=== PATIENT | female | born 1945 | race American Indian/Alaskan Native ===

== ENCOUNTER 2016-03-12 09:13 | Day surgery (SDC) | payer OTHER, MEDICARE ==
[2016-03-11 10:22] LABS: Hematocrit 23.2 % (30.3-42.9); Hemoglobin 7.4 gm/dl (10.1-14.3)
[~2016-03-12 09:13] MED LIST: FLUSH HEPARIN IV ONE
[2016-03-12] MEDS ORDERED: NACL 0.9% 250ML 250 ML IV ONE (09:16)
[2016-03-12] MEDS ORDERED: BENADRYL PO ONE (09:16)
[2016-03-12] MEDS ORDERED: TYLENOL PO ONE (09:16)
[2016-03-12] MEDS ORDERED: FLUSH HEPARIN IV SCH (14:31)
[2016-03-12 14:48] VITALS: BP 136/84
== END 2016-03-12 15:21 | disposition home or self-care (01) ==
LOC: OPU 09:13 → EDSTATUS 09:30 → OPU 15:21
PROVIDERS: ATTEND Internal Medicine Hematology & Oncology
DX: D64.9 Anemia, unspecified (principal)
CPT/HCPCS: 36415; 36430; 85018; 86850; 86900; 86901; 86920; J1642; J7050; P9016

== ENCOUNTER 2016-03-17 15:28 | Inpatient (IN) | payer OTHER, MEDICARE ==
--- NOTE | 2016-03-17 16:42 | Emergency Department Report ---
Chief Complaint: Nausea/Vomiting/Diarrhea Stated Complaint: FATIGUE - HPI History of Present Illness: Terminally-ill patient with b/l lung cancer undergoing chemo c/o weakness, dehydration, stomach pain, and right chest pain at site of port radiating up right neck. Reports 2 units blood transfusion 03/12/15. Last chemo 2 months ago. Reports emergency hysterectomy 02/02/16. - Exam Vital Signs: Vital Signs 03/17/16 16:22 Temperature 97.3 F L Pulse Rate 88 Respiratory 18 Rate Blood Pressure 118/87 O2 Sat by Pulse 100 Oximetry Physical Exam: General: chronically debilitated-appearing. MSE screening note: Focused history and physical exam performed. Due to findings the following was ordered: ED Medical Decision Making - Medical Decision Making Patient to see MD in main ED. ED Disposition for MSE Condition: Stable
[2016-03-17 17:22] LABS: Eosinophils % (Auto) 0.3 % (0.0-4.3)
[2016-03-17 17:37] LABS: INR 1.26 (0.87-1.13)
[2016-03-17 17:38] LABS: Partial Thromboplastin Time 34.3 Sec. (24.2-36.6)
[2016-03-17 17:41] LABS: Albumin 2.2 g/dL (3.9-5); Albumin/Globulin Ratio 0.5 %; BUN/Creatinine Ratio 17.27; Bilirubin,Total 0.5 mg/dL (0.1-1.2); Calcium 8.7 mg/dL (8.4-10.2); Chloride 102.2 mmol/L (98-107); Potassium 3.1 mmol/L (3.6-5.0); Total Protein 6.5 g/dL (6.3-8.2)
[2016-03-17 19:14] LABS: Hematocrit 36.1 % (30.3-42.9); Hemoglobin 11.3 gm/dl (10.1-14.3); Mean Corpuscular HGB Conc 31 % (30-34); Mean Corpuscular Hemoglobin 26 pg (28-32); Mean Corpuscular Volume 83 fl (79-97); Red Blood Count 4.37 M/mm3 (3.65-5.03); White Blood Count 14.5 K/mm3 (4.5-11.0)
[2016-03-17 19:15] LABS: Basophils % (Auto) 0.2 % (0.0-1.8); Platelet Count 199 K/mm3 (140-440); Red Cell Distribution Width 16.7 % (13.2-15.2)
--- NOTE | 2016-03-18 07:51 | XRay Report ---
AP and lateral chest: Comparison is made to prior study of January 21, 2016. There is an enlarging right mass in what appears to be the superior segment of the right lower lobe. There is a cavity with air fluid. The mass is larger than on prior study and the cavity is new. A small focal area of parenchymal density is noted just above the left hilum which probably is unchanged from prior study. The lungs otherwise appear generally clear. The heart is normal in size and is no vascular congestion. There is [id number] entering the left jugular vein with the tip in the superior SVC. Impression: Enlarging right cavitary mass.
[2016-03-18] MEDS ORDERED: NACL 0.9% 1000 ML 1,000 ML IV ONE (08:54)
[2016-03-18] MEDS ORDERED: ZOFRAN IV ONE (09:04)
[2016-03-18] MEDS ORDERED: DILAUDID IV ONE (09:04)
[2016-03-18] MEDS ORDERED: NORMODYNE IV ONE (09:04)
[2016-03-18] MEDS ORDERED: APRESOLINE IV ONE (09:04)
[2016-03-18 09:15] LABS: ISTAT Base Excess -7; ISTAT DEVICE 0; ISTAT HCO3 17.8; ISTAT PCO2 27.9 (35-45); ISTAT PH 7.413 (7.35-7.45); ISTAT PO2 94 (80-105); ISTAT SO2 98; ISTAT TCO2 19
[2016-03-18] MEDS ORDERED: VALIUM IV ONE (09:37)
--- NOTE | 2016-03-18 09:37 | Emergency Department Report ---
HPI - General Chief Complaint: Nausea/Vomiting/Diarrhea Time Seen by Provider: 03/18/16 08:40 - HPI HPI: The patient is a 70-year-old female with a history of lung cancer, C. difficile 1 month ago, recurrent diarrhea, recurrent hematochezia, currently appetite loss , and appendectomy and pelvic abscess drainage 1 month ago, who presents for evaluation of abdominal pain. The patient reports 1 week of constant lower abdominal pain, mild in severity, cramping in quality, and associated with dysuria, recurrence of diarrhea, and worsening of decreased appetite. She additionally complains of generalized weakness and fatigue increased from her baseline, for the past couple of days. The patient denies fever, chills, night sweats, chest pain, dyspnea, hematuria, flank pain, genital discharge, inability to pass flatus, paresthesias, lateralizing motor deficit, or other focal neurological deficit. ED Past Medical Hx - Past Medical History Hx Hypertension: Yes Hx Heart Attack/AMI: No Hx Congestive Heart Failure: No Hx Diabetes: Yes Hx Deep Vein Thrombosis: No Hx Liver Disease: No Hx Renal Disease: No Hx Arthritis: Yes (KNEES) Hx Seizures: No Hx Kidney Stones: No Hx Asthma: No Hx Dementia: No Hx HIV: No Additional medical history: hyperlipidemia - Surgical History Hx Coronary Stent: No Hx Open Heart Surgery: No Hx Pacemaker: No Hx Internal Defibrillator: No Hx Cholecystectomy: Yes Hx Appendectomy: Yes Hx Breast Surgery: No Additional Surgical History: lung biopsy (2010). breast biopsy (Apr 2014), abdominal hysterectomy - Social History Smoking Status: Never Smoker - Medications Home Medications: Home Medications Medication Instructions Recorded Confirmed Last Taken Type Multivitamin [Multi-Vitamin Daily] 1 tab PO DAILY 05/16/14 02/24/16 1 Week Ago History Acetaminophen [Acetaminophen TAB] 650 mg PO Q6H PRN #1 tablet 02/13/16 02/24/16 Unknown Rx Antacid [Alum-Mag Hydrox-Simeth 30 ml PO Q4H PRN #1 oral.liqd 02/13/16 02/24/16 Unknown Rx [id number]] Carvedilol [Coreg] 12.5 mg PO DAILY #30 tablet 02/13/16 02/24/16 Unknown Rx Cholestyramine (with Sugar) 4 gm PO QDAY #30 packet 02/13/16 02/24/16 Unknown Rx [Questran] Lactobacillus Acidophil [Floranex] 1 each PO BID #60 packet 02/13/16 02/24/16 Unknown Rx Megestrol [Megace] 400 mg PO QDAY 30 Days 02/13/16 02/24/16 Unknown Rx Mirtazapine [Remeron] 15 mg PO QHS #30 tablet 02/13/16 02/24/16 Unknown Rx Simvastatin [Zocor TAB] 5 mg PO DAILY #30 tablet 02/13/16 02/24/16 Unknown Rx Triamter/Hctz 37.5-25 mg 1 tab PO DAILY #30 tablet 02/13/16 02/24/16 Unknown Rx [Maxzide-25] metroNIDAZOLE [Flagyl] 500 mg PO Q8HR #30 tablet 02/27/16 Unknown Rx Oxycodone HCl/Acetaminophen 1 each PO Q6HR PRN #15 tablet 03/18/16 Unknown Rx [Percocet 7.5/325 mg] ED Review of Systems ROS: Stated complaint: FATIGUE Other details as noted in HPI Constitutional: denies: fever ENT: denies: throat or neck pain Respiratory: denies: cough, shortness of breath Cardiovascular: denies: chest pain Endocrine: denies unexplained weight loss or gain Gastrointestinal: reports abdominal pain, nausea Genitourinary: denies: dysuria Musculoskeletal: denies: leg swelling Skin: denies: rash Neurological: denies: headache Hematological/Lymphatic: denies: easy bleeding or easy bruising Psych: denies sadness or hopelessness Physical Exam - Physical Exam Vital Signs: Vital Signs 03/17/16 03/18/16 03/18/16 16:22 03:43 07:49 Temperature 97.3 F L 97.3 F L Pulse Rate 88 95 H 96 H Respiratory 18 18 20 Rate Blood Pressure 118/87 152/102 Blood Pressure 148/114 [Right] O2 Sat by Pulse 100 100 100 Oximetry Physical Exam: General: well-nourished, well-developed, no acute distress Head: Normocephalic, atraumatic Eyes: normal sclera ENT: Mucous membranes are pink and moist Neck: trachea midline, neck supple, No neck stiffness, no cervical adenopathy Respiratory: Breath sounds equal bilaterally, no wheezing, rales, or rhonchi Cardio: S1 and S2 present, no murmurs, rubs, gallops, capillary refill is brisk Abdomen: Normoactive bowel sounds, soft abdomen, periumbilical tenderness to palpation present, no rigidity, no guarding or rebound tenderness Musc: No pitting edema Skin: No rash Neuro: no facial drooping, normal speech Psych: Normal affect ED Course Vital Signs 03/17/16 03/18/16 03/18/16 16:22 03:43 07:49 Temperature 97.3 F L 97.3 F L Pulse Rate 88 95 H 96 H Respiratory 18 18 20 Rate Blood Pressure 118/87 152/102 Blood Pressure 148/114 [Right] O2 Sat by Pulse 100 100 100 Oximetry ED Medical Decision Making - Lab Data Result diagrams: 03/17/16 17:05 03/17/16 17:05 - Medical Decision Making The patient was seen and examined by myself. The patient is placed on a window shade cutter and mounter and continuous pulse ox. On initial evaluation, the patient was found to be in no distress. Evaluation orders are placed. IV access is established and the patient is given 1 L normal saline fluid bolus, Zofran for nausea, and IV dilaudid for pain. Lab results revealed mild leukocytosis of 14, and elevated glucose of 390, with low bicarbonate and elevated anion gap, although normal pH of 7.4 on ABG not consistent with diabetic ketoacidosis. Lab results otherwise were unremarkable including hemoglobin, hematocrit, renal function, LFTs, lipase, and urinalysis. The patient was given IV insulin for treatment of her blood sugar. X-ray of the chest reveals an enlarging right lower lobe mass with a new cavitary lesion compared to previous Xr. The on-call hospitalist service was contacted. They agreed to admit the patient for further treatment and close monitoring. The ED admit order was placed. The patient was admitted in guarded condition. Critical care attestation.: If time is entered above; I have spent that time in minutes in the direct care of this critically ill patient, excluding procedure time. ED Disposition Clinical Impression: Hypertensive urgency, Acute hyperglycemia, Acute generalized abdominal pain, Generalized weakness, Dehydration, Cavitary lung disease Lung cancer Qualifiers: Laterality: right Lung location: lower lobe of lung Qualified Code(s): C34.31 - Malignant neoplasm of lower lobe, right bronchus or lung Disposition: OP ADMITTED IP TO THIS HOSP Is pt being admited?: Yes Does the pt Need Aspirin: Yes Condition: Fair Prescriptions: Oxycodone HCl/Acetaminophen [Percocet 7.5/325 mg] 1 each PO Q6HR PRN #15 tablet PRN Reason: Pain Referrals: ALLISON FLORES MD [Primary Care Provider] - 3-5 Days Time of Disposition: 09:55
[2016-03-18 11:08] LABS: Bilirubin,Urine Negative (Negative); Ketones,Urine Negative (Negative)
[2016-03-18 11:09] LABS: Bacteria,Urine 4+ /HPF (Negative); Blood,Urine Moderate (Negative); Leukocyte Esterase,Urine Negative (Negative); Nitrite,Urine Positive (Negative); Urobilinogen,Urine < 2.0 mg/dL (<2.0)
[2016-03-18] MEDS ORDERED: BABY ASPIRIN PO ONE (12:44)
--- NOTE | 2016-03-18 12:49 | Admit Criteria Form ---
Admission Criteria Documentation: GASTROENTEROLOGY GRG Clinical Indications for Admission to Inpatient Care (Place 'X' for any and all applicable criteria): Hospital admission is needed for appropriate care of the patient because of ANY ONE of the following: [ ]I. Hemoperitoneum(7) [ ]II. Ascites requiring acute treatment indicated by ANY ONE of the following( 8)(9): [ ]a) Hemodynamic instability remaining after emergency or observation level care (as appropriate) [ ]b) Peritoneal signs present (eg, abdominal rigidity, rebound tenderness, absent bowel sounds) [ ]c) Tachypnea, Hypoxemia, or other respiratory symptoms remain after emergency or observation level care (as appropriate) [ ]d) Suspected infected ascites as indicated by ANY ONE of the following: [ ]i) Temperature greater than 100 degrees F (37.8 degrees C) [ ]ii) Abdominal pain or tenderness not relieved by paracentesis [ ]iii) Systemic signs of infection (eg, elevated WBC count, fever) [ ]iv) Ascitic fluid analysis consistent with infection ( eg, elevated WBC count): [ ]v) Vital sign abnormality [ ]III. Suspected acute intra-abdominal process indicated by ANY ONE of the following(1)(2)(3)(4)(5): [ ]a) Hemodynamic instability [ ]b) Peritoneal signs present (eg, abdominal rigidity, rebound tenderness, absent bowel sounds) [ ]c) Bowel obstruction suspected (eg, severe vomiting, abdominal distension) [ ]d) Suspected mesenteric ischemia or ischemic colitis(6) [ ]e) Other signs or symptoms of acute abdominal disease (eg, severe pain, free air): [ ]IV. Severe liver disease indicated by ANY ONE of the following(8)(9)(10)(11)( 12)(13)(14): [ ]a) Acute hepatitis (eg, transaminase level greater than 1000 IU/L) [ ]b) Acute elevation of prothrombin time to more than 50% above normal or INR greater than 1.5 [ ]c) Bilirubin greater than 20 mg/dL (342 micromoles/L) (15) [ ]d) New-onset or worsening hepatic encephalopathy [ ]e) Acute liver necrosis [ ]f) Vomiting or dehydration that is severe of persistent [ ]g) Hemodynamic instability due to liver disease [ ]h) Acute renal failure [ ]i) Hepatic abscess [ ]j) Dehydration that is severe or persistent [ ]k) Hepatic hydrothorax(21) [ ]l) Other indications of severe liver disease (eg, persistent fever , ingestion of hepatotoxin) [X ]V. Severe diarrhea indicated by ANY ONE of the following(17)(18)(19)(20)(21) (22)(23): [ ]a) High fever or other high-risk infection situation [ ]b) Intractable bloody diarrhea (eg, more than 6 bloody stools per day) [X ]c) Suspected Clostridium difficile-associated diarrhea(24) [ ]d) Change in mental status that persists after emergency or observation level care (as appropriate) [ ]e) Severe dehydration (eg, greater than 9% loss of body weight in children) [ ]f) Inability to maintain hydration [ ]g) Peritoneal signs present (eg, abdominal rigidity, rebound tenderness, absent bowel sounds) [ ]h) Abdominal ischemia suspected(6) [ ]i) Hemodynamic instability that persists after emergency or observation level care (as appropriate) [ ]j) Severe electrolyte abnormalities requiring inpatient care [ ]k) Acute renal failure [ ]. Suspected toxic megacolon(5)(6) [ ]VII.Severe dysphagia indicated by ANY ONE of the following(25)(26): [ ]a) Suspected esophageal perforation or fistula(27) [ ]b) Suspected cause that requires inpatient care (eg, caustic ingestion, severe esophagitis) (28) [ ]c) Severe dehydration (eg, greater than 9% loss of body weight in children) [ ]d) Inability to manage secretions or maintain hydration [ ]e) Hemodynamic instability that persists after emergency or observation level care (as appropriate) [ ]f) Severe electrolyte abnormalities requiring inpatient care [ ]g) Acute renal failure [ ]VIII.Vomiting and ANY ONE of the following (29)(30)(31)(32): [ ]a) High fever or other high-risk infection situation [ ]b) Change in mental status that persists after emergency or observation level care (as appropriate) [ ]c) Severe dehydration (e.g., greater than 9% loss of body weight in children) [ ]d) Peritoneal signs present (e.g., abdominal rigidity, rebound tenderness, absent bowel sounds) [ ]e) Hemodynamic instability that persists after emergency or observation level care (as appropriate) [ ]f) Severe electrolyte abnormalities requiring inpatient care [ ]g) Acute renal failure [ ]h) Bowel obstruction suspected (e.g., severe vomiting, abdominal distension) [ ]i) Vomiting that is severe or persistent after medical treatment [ ]IX. Significant dehydration indicated by ANY ONE of the following(23)(24)(25) [ ]a) Clinical findings of severe dehydration indicated by ANY ONE of the following: [ ]i) Acute loss of weight from baseline (5% of body weight in adults, 9% in pediatric patients) [ ]ii) Hemodynamic instability [ ]iii) Acute renal failure [ ]iv) Serum sodium greater than 150 mEq/L (mmol/L) [ ]b) Dehydration that is persistent indicated by ALL of the following: [ ]i) Oral rehydration therapy not tolerated or insufficient to adequately correct dehydration [ ]ii) Appropriate intravenous treatment (eg, fluids) does not readily correct dehydration hours of (ie, after 12 to 24 of treatment) [ ]X. Gastroparesis and ANY ONE of the following(37)(38)(39): [ ]a) Dehydration that is severe or persistent [ ]b) Severe electrolyte abnormalities requiring inpatient care [ ]c) Acute renal failure [ ]d) Vomiting that is severe or persistent [ ]XI. Complications of transplanted liver indicated by ANY ONE of the following (40)(41): [ ]a) Acute graft rejection requiring inpatient management (eg, intravenous immunosuppression)(42) [ ]b) Failure of transplanted liver as indicated by ANY ONE of the following: [ ]i) Acute hepatitis (eg, transaminase level greater than 1000 International Units per liter (IU/L)) [ ]ii) Acute elevation of prothrombin time to more than 50% above baseline or INR greater than 1.5 [ ]iii) Bilirubin greater than 20 mg/dL (342 micromoles/L) [ ]iv) New-onset or worsening hepatic encephalopathy [ ]v) Acute elevation of serum ammonia level (eg, greater than 210 mcg/dL (150 micromoles/L)) [ ]vi) Acute liver necrosis [ ]c) Infection requiring inpatient management (eg, Hemodynamic instability, need for intravenous antimicrobial treatment)(43)(44)(45)(46)(47)(48)(49)(50) [ ]d) Other complication of transplanted liver (eg, thrombosis, autoimmune hepatitis, variceal bleeding) requiring inpatient management(51)(52) [ ]XII Complications of transplanted pancreas indicated by ANY ONE of the following(53): [ ]a) Acute graft rejection requiring inpatient management (eg, intravenous immunosuppression)(42)(54) [ ]b) Failure of transplanted pancreas as indicated by ANY ONE of the following: [ ]i) Serum amylase greater than 3 times the upper limit of normal or baseline [ ]ii) Serum lipase greater than 3 times the upper limit of normal or baseline [ ]iii) Imaging findings consistent with pancreatic inflammation or necrosis [ ]c) Infection requiring inpatient management (eg, Hemodynamic instability, need for intravenous antimicrobial treatment)(43)(44)(45)(46)(47)(48)(49)(50) [ ]d) Other complication of transplanted liver (eg, thrombosis, autoimmune hepatitis, variceal bleeding) requiring inpatient management(51)(52) [ ]X. Gastroenterology condition and ALL of the following: [ ]a) Symptom or finding for which emergency and observation care have failed or are not considered appropriate (Also use General Criteria: Observation Care as appropriate) [ ]b) Presence of ANY ONE of the following: [ ]i) A General Admission Criteria [ ]ii) A Pediatric General Admission Criteria. The original [facility] [employer] content created by [facility] has been revised. The portions of the content which have been revised are identified through the use of italic text or in bold,and [facility] has neither reviewed nor approved the modified material. All other unmodified content is copyright [facility]. Please see references footnoted in the original [facility] edition 2016 Admission Criteria Met: Yes
--- NOTE | 2016-03-18 14:14 | Event Note ---
Date: 03/18/16 See H/p in reports C diff colitis Hypokalemia Lung ca with Rt cavitary lesion sec to cancer DM UTI HTN HLD
[2016-03-18] MEDS ORDERED: MILK OF MAGNESIA PO PRN (14:19)
[2016-03-18] MEDS ORDERED: DULCOLAX PR PRN (14:19)
[2016-03-18] MEDS ORDERED: TYLENOL PO PRN ×2 (14:19→14:22)
[2016-03-18] MEDS ORDERED: PERCOCET 5/325 PO PRN (14:19)
[2016-03-18] MEDS ORDERED: ZOFRAN IV PRN (14:19)
[2016-03-18] MEDS ORDERED: DILAUDID IV PRN (14:19)
[2016-03-18] MEDS ORDERED: ALUM-MAG HYDROX-SIMETH 200-200-20MG/5ML PO PRN (14:22)
[2016-03-18] MEDS ORDERED: BABY ASPIRIN ONE (15:55)
[2016-03-18] MEDS: FLAGYL PO SCH ×2 (16:04→22:36)
[2016-03-18] MEDS: D5NS 1,000 ML IV SCH (16:11)
[2016-03-18 21:04] LABS: B-Hydroxybutyrate 3.8 mg/dL (0.2-2.8)
[2016-03-18] MEDS: REMERON PO SCH (22:36)
[2016-03-18] MEDS: ZOCOR PO SCH (22:37)
--- NOTE | 2016-03-19 01:52 | History and Physical Report ---
CHIEF COMPLAINT: Nausea, vomiting, and diarrhea. HISTORY OF PRESENT ILLNESS: A 70-year-old female with history of lung cancer on chemotherapy till one month ago and C. difficile one month ago, comes in for recurrent diarrhea, loss of appetite and abdominal pain. The patient had a pelvic abscess drainage one month ago and appendectomy recently. The patient reports one week of constant abdominal pain, mild in severity, cramping in quality and associated with diarrhea and worsening of decreased appetite. Feels weak. No dysuria, no flank pain. PAST MEDICAL HISTORY: Significant for hypertension, C. diff colitis, insulin-dependent diabetes, arthritis of the knees, and hyperlipidemia. PAST SURGICAL HISTORY: Significant for cholecystectomy, appendectomy, lung biopsy 2010, breast biopsy on 04/26/2014, and abdominal hysterectomy. CURRENT MEDICATIONS: On the chart. REVIEW OF SYSTEMS: Significant for diarrhea and crampy abdominal pain and generalized weakness. CONSTITUTIONAL: No weight loss. No weight gain. No fever, no chills. HEENT: No sore throat. No postnasal drip. CARDIOVASCULAR AND RESPIRATORY: No shortness of breath, no chest pain, no palpitations. GASTROINTESTINAL: No abdominal pain and cramping pain and diarrhea present. Foul smelling. GENITOURINARY: No dysuria, no flank pain. MUSCULOSKELETAL: No joint pains. INTEGUMENTARY: No pruritus, no redness, no sores. NEUROLOGICAL: No syncope, no seizures. PSYCHIATRIC: No anxiety, no memory loss. ENDOCRINE: No cold intolerance or hot intolerance or polyphagia. HEMATOLOGIC AND LYMPHATIC: No easy bruising or easy bleeding. ALLERGIC AND IMMUNOLOGIC: No urticaria, no allergic rhinitis. PHYSICAL EXAMINATION: GENERAL: Elderly female, cooperative during examination. VITAL SIGNS: Blood pressure is 120/68, temperature is 100, pulse is 75, respirations 14, sats are 100%. HEENT: Unremarkable. NECK: Supple, no lymphadenopathy, no thyromegaly. LUNGS: Clear to auscultation and percussion. Good air entry. CARDIOVASCULAR: S1, S2 heard. No gallop, no murmur, no rub. Apical impulse in left fifth intercostal space and midclavicular line. ABDOMEN: Tender in the periumbilical region. Bowel sounds are normal. Hernial orifices are normal. EXTREMITIES: Good pedal pulses. CENTRAL NERVOUS SYSTEM: Alert and oriented x 4, nonfocal exam. SKIN: Normal. LABORATORY DATA: Significant for white count of 14,500, H and H is 11.3 and 36.1, potassium is 3.1, BUN and creatinine is 19 and 1.1, glucose is 394. LFTs are normal. Albumin is 2.2. Urine white blood cells are 7. Ketones are 3.8. Urine bacteria is 4+. C. diff is pending. ABG significant for pCO2 of 27.9, pO2 of 94. pH is 7.4. ___ sat of 98%. ASSESSMENT AND PLAN: 1. Clostridium difficile colitis. The patient was started on IV Flagyl 500 q. 8 hours. IV fluids. 2. Hypokalemia, supplemented. 3. Lung cancer. The patient is on chemotherapy till recently. Dr. Anneliese [place]/oncologist consulted. 4. Insulin-dependent diabetes, coverage for the time being. Check hemoglobin A1c. 5. Urinary tract infection, on Rocephin 1 gram IV piggyback q. 24 hours. 6. Slightly hypertension. Continue Coreg 12.5 mg daily and triamterene/hydrochlorothiazide 37.5/25 mg daily. 7. Hyperlipidemia. Continue simvastatin 5 mg daily. 8. Deep venous thrombosis prophylaxis, Lovenox 40 mg subcutaneous daily. JOB# [id number] VSLinda/NTS
[2016-03-19] MEDS: KCL 10MEQ/100ML 100 ML IV SCH ×4 (02:49→06:25)
[2016-03-19] MEDS: FLAGYL PO SCH ×3 (06:25→23:09)
[2016-03-19 08:03] LABS: Hematocrit 32.2 % (30.3-42.9); Hemoglobin 10.4 gm/dl (10.1-14.3); Mean Corpuscular HGB Conc 32 % (30-34); Mean Corpuscular Hemoglobin 27 pg (28-32); Mean Corpuscular Volume 82 fl (79-97); Platelet Count 182 K/mm3 (140-440); Red Blood Count 3.91 M/mm3 (3.65-5.03); Red Cell Distribution Width 16.6 % (13.2-15.2)
[2016-03-19 08:15] LABS: White Blood Count 20.9 K/mm3 (4.5-11.0)
[2016-03-19 08:28] LABS: Albumin/Globulin Ratio 0.5 %; Alkaline Phosphatase 75 units/L (35-129); Anion Gap 14 mmol/L; BUN/Creatinine Ratio 21.11; Bilirubin,Total 0.5 mg/dL (0.1-1.2); Blood Urea Nitrogen 19 mg/dL (7-17); Calcium 8.4 mg/dL (8.4-10.2); Carbon Dioxide 20 mmol/L (22-30); Chloride 114.8 mmol/L (98-107); Glucose 121 mg/dL (65-100); Potassium 4.1 mmol/L (3.6-5.0); Sodium 145 mmol/L (137-145); Total Protein 5.9 g/dL (6.3-8.2)
[2016-03-19 08:31] LABS: Alanine Aminotransferase < 5 units/L (7-56)
--- NOTE | 2016-03-19 09:05 | Hem/Onc Progress Note ---
Assessment and Plan Patient has history of lung cancer. Will order's CT of the [place] and lung to assess the disease status. She has elevated white count which could be from malignancy or C. difficile. We will follow-up on the intra-abdominal status of the patient to with the scan. Next Patient seems to be confused. We will order MRI of the head to rule out any brain metastases. Next Patient also has evidence of urinary tract infection being treated. Subjective Date of service: 03/19/16 Interval history: Patient known to me. History of metastatic lung cancer. Patient had recent bout of intra-abdominal abscess requiring surgery. She also had evidence of C. difficile colitis. She presented to the hospital with weakness. Her white count was high. Patient has been empirically placed on Flagyl and anti- biotics. C. difficile is pending. Patient has not had chemotherapy for some time. Her scans outpatient workup pending to see the status of the disease. She feels better since she's come to the hospital. Objective - Exam Narrative Exam: Confused - Constitutional Vitals: Last Vital Signs Temp 97.7 F 03/19/16 07:54 Pulse 88 03/19/16 07:54 Resp 16 03/19/16 07:54 BP 172/73 03/19/16 07:54 Pulse Ox 97 03/19/16 07:54 Pain Intensity (0-10): denies any pain - Neck Neck: supple - Respiratory Respiratory: bilateral: diminished - Cardiovascular Rhythm: regular Extremities: No edema - Gastrointestinal General gastrointestinal: Present: soft - Labs Lab Results: Laboratory Results - last 24 hr 03/18/16 03/18/16 03/19/16 14:57 Unknown 06:02 WBC RBC Hgb Hct MCV MCH MCHC RDW Plt Count Sodium Potassium Chloride Carbon Dioxide Anion Gap BUN Creatinine Estimated GFR BUN/Creatinine Ratio Glucose POC Glucose 137 H Hemoglobin A1c 5.8 Calcium Total Bilirubin AST ALT Alkaline Phosphatase Total Protein Albumin Albumin/Globulin Ratio Urine Color Yellow Urine Turbidity Cloudy Urine pH 6.0 Ur Specific [place] 1.005 Urine Protein 30 mg/dl Urine Glucose (UA) Negative Urine Ketones Negative Urine Blood Moderate Urine Nitrite Positive Urine Bilirubin Negative Urine Urobilinogen < 2.0 Ur Leukocyte Esterase Negative Urine WBC (Auto) 7.0 H Urine RBC (Auto) 2.0 U Epithel Cells (Auto) 7.0 Urine Bacteria (Auto) 4+ 03/19/16 03/19/16 07:45 07:45 WBC 20.9 H RBC 3.91 Hgb 10.4 Hct 32.2 MCV 82 MCH 27 L MCHC 32 RDW 16.6 H Plt Count 182 Sodium 145 Potassium 4.1 D Chloride 114.8 H Carbon Dioxide 20 L Anion Gap 14 BUN 19 H Creatinine 0.9 Estimated GFR > 60 BUN/Creatinine Ratio 21.11 Glucose 121 H POC Glucose Hemoglobin A1c Calcium 8.4 Total Bilirubin 0.5 AST 8 ALT < 5 L Alkaline Phosphatase 75 Total Protein 5.9 L Albumin 2.0 L Albumin/Globulin Ratio 0.5 Urine Color Urine Turbidity Urine pH Ur Specific [place] Urine Protein Urine Glucose (UA) Urine Ketones Urine Blood Urine Nitrite Urine Bilirubin Urine Urobilinogen Ur Leukocyte Esterase Urine WBC (Auto) Urine RBC (Auto) U Epithel Cells (Auto) Urine Bacteria (Auto)
[2016-03-19 09:31] LABS: Anisocytosis RARE; Basophils % (Manual) 0 % (0.0-1.8); Blastocytes % (Manual) 0 %; Eosinophils % (Manual) 0 % (0.0-4.3)
[2016-03-19 09:32] LABS: Diff Status Complete; Polychromasia Rare
[2016-03-19] MEDS: NOVOLOG SUB-Q SCH ×5 (11:05→23:14)
[2016-03-19] MEDS: MAXZIDE-25 PO SCH (11:07)
[2016-03-19] MEDS: COREG PO SCH (11:08)
[2016-03-19] MEDS: LOVENOX SUB-Q SCH (11:20)
[2016-03-19] MEDS: MEGACE PO SCH (11:21)
--- NOTE | 2016-03-19 17:38 | Cat Scan Report ---
FINAL REPORT PROCEDURE: CT chest with contrast. TECHNIQUE: Computerized axial tomography of the chest was performed during the IV injection of iodinated nonionic contrast. HISTORY: Lung cancer. COMPARISON: CT chest 09/05/2015. TECHNICAL QUALITY: Satisfactory. FINDINGS: The thyroid gland is enlarged. The left lobe extends posterior to the left clavicle and the manubrium. The trachea is displaced to the right by the enlarged left lobe. The central bronchi appear normal. The thoracic aorta has a normal caliber without evidence of dissection. The central pulmonary arteries enhance normally. There is no definite mediastinal adenopathy. The heart size is normal. There is a very small amount of right pleural fluid. There is still a large mass located predominantly in the superior segment of the right lower lobe. This mass now has new cavitation with central fluid. This is likely secondary to tumor necrosis. A lung abscess cannot be excluded. The overall size of this mass is slightly larger measuring approximately 7.3 centimeters x 5.5 centimeters in cross-section. There are still a few peripheral small nodular opacities in both upper lobes. These opacities are not sharply defined like typical metastatic disease. My suspicion is that they may represent inflammatory nodules. Clinical correlation is suggested. There is still a small focal area of consolidation/nodularity in the superior segment of the left lower lobe. This is unchanged and could represent chronic fibrosis or a chronic inflammatory process. The thoracic skeleton appears intact. There are some subtle new focal masses in the upper portion of the liver worrisome for metastatic disease. These were not definitely present on the previous study. IMPRESSION: Large right lower lobe lung cancer with slight increase in size and new central cavitation and fluid. Lung abscess cannot be excluded. No significant change in possible small inflammatory nodules in both lungs. New tiny right pleural effusion and new metastatic disease in the liver. Substernal thyroid goiter.
--- NOTE | 2016-03-19 17:42 | Progress Note ---
Assessment and Plan Assessment and plan: --Intractable nausea vomiting and diarrhea Symptomatic management IV fluids and antiemetics stool analysis --History of C. difficile colitis Contact isolation, by mouth Flagyl, ID evaluation if needed --Leukocytosis; rule out sepsis Probably secondary to C. difficile colitis versus malignancy Closely monitor --Metastatic lung cancer; Supportive care, hematology oncologist evaluation and recommendations noted MRI of the brain and other workup in progress --type 2 diabetes mellitus, Accu-Chek sliding scale coverage and ADA diet and insulin as needed --Urinary tract infection; empiric antibiotics and follow cultures --History of hypertension close monitor blood pressures and adjust as needed --Hypokalemia replenishment protocol and monitor levels --Hypertension and dyslipidemia Resume home medications --Dyslipidemia stable on lipid-lowering medications --Patient full CODE STATUS, closely monitor the patient and adjust management as needed --DVT prophylaxis with Lovenox Plan of care discussed with the patient and the family members at the bedside History Interval history: Patient seen and evaluated in her room medical records reviewed No new events reported by the nursing staff Hematology oncologist evaluation and recommendations noted and appreciated, workup is in progress Patient feels generalized weakness Alert awake responding appropriately cachectic chronically looking In mild distress, vital signs reviewed Hospitalist Physical - Constitutional Vitals: Temp Pulse Resp BP Pulse Ox 98.3 F 82 16 145/82 95 03/19/16 14:51 03/19/16 14:51 03/19/16 14:51 03/19/16 14:51 03/19/16 14:51 General appearance: Present: mild distress, cachectic, disheveled - EENT Eyes: Present: PERRL, EOM intact - Neck Neck: Present: supple, normal ROM - Respiratory Respiratory effort: normal Respiratory: bilateral: diminished, rhonchi, negative: rales, wheezing - Cardiovascular Rhythm: regular Heart Sounds: Present: S1 & S2 - Extremities Extremities: no ischemia, pulses intact, pulses symmetrical Extremity abnormal: edema - Abdominal General gastrointestinal: soft, non-tender, non-distended, normal bowel sounds - Integumentary Integumentary: Present: clear, warm - Psychiatric Psychiatric: appropriate mood/affect, cooperative - Neurologic Neurologic: CNII-XII intact, moves all extremities Results - Labs CBC & Chem 7: 03/20/16 08:00 03/20/16 08:00 Labs: Laboratory Last Values WBC 20.9 K/mm3 (4.5-11.0) H 03/19/16 07:45 RBC 3.91 M/mm3 (3.65-5.03) 03/19/16 07:45 Hgb 10.4 gm/dl (10.1-14.3) 03/19/16 07:45 Hct 32.2 % (30.3-42.9) 03/19/16 07:45 MCV 82 fl (79-97) 03/19/16 07:45 MCH 27 pg (28-32) L 03/19/16 07:45 MCHC 32 % (30-34) 03/19/16 07:45 RDW 16.6 % (13.2-15.2) H 03/19/16 07:45 Plt Count 182 K/mm3 (140-440) 03/19/16 07:45 Lymph % (Auto) 22.1 % (13.4-35.0) 03/17/16 17:05 [place] % (Auto) 8.8 % (0.0-7.3) H 03/17/16 17:05 Eos % (Auto) 0.3 % (0.0-4.3) 03/17/16 17:05 Baso % (Auto) 0.2 % (0.0-1.8) 03/17/16 17:05 Lymph # 3.2 K/mm3 (1.2-5.4) 03/17/16 17:05 [place] # 1.3 K/mm3 (0.0-0.8) H 03/17/16 17:05 Eos # 0.0 K/mm3 (0.0-0.4) 03/17/16 17:05 Baso # 0.0 K/mm3 (0.0-0.1) 03/17/16 17:05 Add Manual Diff Complete 03/19/16 07:45 Total Counted 100 03/19/16 07:45 Seg Neutrophils % 68.6 % (40.0-70.0) 03/17/16 17:05 Seg Neuts % (Manual) 87.0 % (40.0-70.0) H 03/19/16 07:45 Band Neutrophils % 0 % 03/19/16 07:45 Lymphocytes % (Manual) 10.0 % (13.4-35.0) L 03/19/16 07:45 Reactive Lymphs % (Man) 0 % 03/19/16 07:45 Monocytes % (Manual) 3.0 % (0.0-7.3) 03/19/16 07:45 Eosinophils % (Manual) 0 % (0.0-4.3) 03/19/16 07:45 Basophils % (Manual) 0 % (0.0-1.8) 03/19/16 07:45 Metamyelocytes % 0 % 03/19/16 07:45 Myelocytes % 0 % 03/19/16 07:45 Promyelocytes % 0 % 03/19/16 07:45 Blast Cells % 0 % 03/19/16 07:45 Nucleated RBC % Not Reportable 03/19/16 07:45 Seg Neutrophils # 9.9 K/mm3 (1.8-7.7) H 03/17/16 17:05 Seg Neutrophils # Man 18.2 K/mm3 (1.8-7.7) H 03/19/16 07:45 Band Neutrophils # 0.0 K/mm3 03/19/16 07:45 Lymphocytes # (Manual) 2.1 K/mm3 (1.2-5.4) 03/19/16 07:45 Abs React Lymphs (Man) 0.0 K/mm3 03/19/16 07:45 Monocytes # (Manual) 0.6 K/mm3 (0.0-0.8) 03/19/16 07:45 Eosinophils # (Manual) 0.0 K/mm3 (0.0-0.4) 03/19/16 07:45 Basophils # (Manual) 0.0 K/mm3 (0.0-0.1) 03/19/16 07:45 Metamyelocytes # 0.0 K/mm3 03/19/16 07:45 Myelocytes # 0.0 K/mm3 03/19/16 07:45 Promyelocytes # 0.0 K/mm3 03/19/16 07:45 Blast Cells # 0.0 K/mm3 03/19/16 07:45 WBC Morphology Not Reportable 03/19/16 07:45 Hypersegmented Neuts Not Reportable 03/19/16 07:45 Hyposegmented Neuts Not Reportable 03/19/16 07:45 Hypogranular Neuts Not Reportable 03/19/16 07:45 Smudge Cells Not Reportable 03/19/16 07:45 Toxic Granulation Not Reportable 03/19/16 07:45 Toxic Vacuolation Not Reportable 03/19/16 07:45 Dohle Bodies Not Reportable 03/19/16 07:45 Pelger-Huet Anomaly Not Reportable 03/19/16 07:45 Germania Rods Not Reportable 03/19/16 07:45 Platelet Estimate Appears normal 03/19/16 07:45 Clumped Platelets Not Reportable 03/19/16 07:45 Plt Clumps, EDTA Not Reportable 03/19/16 07:45 Large Platelets Not Reportable 03/19/16 07:45 Giant Platelets Not Reportable 03/19/16 07:45 Platelet Satelliting Not Reportable 03/19/16 07:45 Plt Morphology Comment Not Reportable 03/19/16 07:45 RBC Morphology Not Reportable 03/19/16 07:45 Dimorphic RBCs Not Reportable 03/19/16 07:45 Polychromasia Rare 03/19/16 07:45 Hypochromasia Not Reportable 03/19/16 07:45 Poikilocytosis Not Reportable 03/19/16 07:45 Anisocytosis Rare 03/19/16 07:45 Microcytosis Not Reportable 03/19/16 07:45 Macrocytosis Not Reportable 03/19/16 07:45 Spherocytes Not Reportable 03/19/16 07:45 Pappenheimer Bodies Not Reportable 03/19/16 07:45 Sickle Cells Not Reportable 03/19/16 07:45 Target Cells Not Reportable 03/19/16 07:45 Tear Drop Cells Not Reportable 03/19/16 07:45 Ovalocytes Not Reportable 03/19/16 07:45 Helmet Cells Not Reportable 03/19/16 07:45 [place] Bodies Not Reportable 03/19/16 07:45 [place] Rings Not Reportable 03/19/16 07:45 [place] Cells Not Reportable 03/19/16 07:45 Bite Cells Not Reportable 03/19/16 07:45 Crenated Cell Not Reportable 03/19/16 07:45 Elliptocytes Not Reportable 03/19/16 07:45 Acanthocytes (Spur) Not Reportable 03/19/16 07:45 Rouleaux Not Reportable 03/19/16 07:45 Hemoglobin C Crystals Not Reportable 03/19/16 07:45 Schistocytes Not Reportable 03/19/16 07:45 Malaria parasites Not Reportable 03/19/16 07:45 Christian Bodies Not Reportable 03/19/16 07:45 Hem Pathologist Commnt No 03/19/16 07:45 PT 15.7 Sec. (12.2-14.9) H 03/17/16 17:05 INR 1.26 (0.87-1.13) H 03/17/16 17:05 APTT 34.3 Sec. (24.2-36.6) 03/17/16 17:05 POC ABG pH 7.413 (7.35-7.45) 03/18/16 09:10 POC ABG pCO2 27.9 (35-45) L 03/18/16 09:10 POC ABG pO2 94 (80-105) 03/18/16 09:10 POC ABG HCO3 17.8 03/18/16 09:10 POC ABG Total CO2 19 03/18/16 09:10 POC ABG O2 Sat 98 03/18/16 09:10 POC ABG Base Excess -7 03/18/16 09:10 FiO2 21 % 03/18/16 09:10 Sodium 145 mmol/L (137-145) 03/19/16 07:45 Potassium 4.1 mmol/L (3.6-5.0) D 03/19/16 07:45 Chloride 114.8 mmol/L (98-107) H 03/19/16 07:45 Carbon Dioxide 20 mmol/L (22-30) L 03/19/16 07:45 Anion Gap 14 mmol/L 03/19/16 07:45 BUN 19 mg/dL (7-17) H 03/19/16 07:45 Creatinine 0.9 mg/dL (0.7-1.2) 03/19/16 07:45 Estimated GFR > 60 ml/min 03/19/16 07:45 BUN/Creatinine Ratio 21.11 % 03/19/16 07:45 Glucose 121 mg/dL (65-100) H 03/19/16 07:45 POC Glucose 142 (70-105) H 03/19/16 16:47 Hemoglobin A1c 5.8 % (4-6) 03/18/16 14:57 Calcium 8.4 mg/dL (8.4-10.2) 03/19/16 07:45 Total Bilirubin 0.5 mg/dL (0.1-1.2) 03/19/16 07:45 AST 8 units/L (5-40) 03/19/16 07:45 ALT < 5 units/L (7-56) L 03/19/16 07:45 Alkaline Phosphatase 75 units/L (35-129) 03/19/16 07:45 NT-Pro-B Natriuret Pep 642.1 pg/mL (0-900) 03/18/16 10:22 Total Protein 5.9 g/dL (6.3-8.2) L 03/19/16 07:45 Albumin 2.0 g/dL (3.9-5) L 03/19/16 07:45 Albumin/Globulin Ratio 0.5 % 03/19/16 07:45 Lipase 6 units/L (13-60) L 03/17/16 17:05 Urine Color Yellow (Yellow) 03/18/16 Unknown Urine Turbidity Cloudy (Clear) 03/18/16 Unknown Urine pH 6.0 (5.0-7.0) 03/18/16 Unknown Ur Specific [place] 1.005 (1.003-1.030) 03/18/16 Unknown Urine Protein 30 mg/dl mg/dL (Negative) 03/18/16 Unknown Urine Glucose (UA) Negative mg/dL (Negative) 03/18/16 Unknown Urine Ketones Negative mg/dL (Negative) 03/18/16 Unknown Urine Blood Moderate (Negative) 03/18/16 Unknown Urine Nitrite Positive (Negative) 03/18/16 Unknown Urine Bilirubin Negative (Negative) 03/18/16 Unknown Urine Urobilinogen < 2.0 mg/dL (<2.0) 03/18/16 Unknown Ur Leukocyte Esterase Negative (Negative) 03/18/16 Unknown Urine WBC (Auto) 7.0 /HPF (0.0-6.0) H 03/18/16 Unknown Urine RBC (Auto) 2.0 /HPF (0.0-6.0) 03/18/16 Unknown U Epithel Cells (Auto) 7.0 /HPF (0-13.0) 03/18/16 Unknown Urine Bacteria (Auto) 4+ /HPF (Negative) 03/18/16 Unknown Ketones 3.8 mg/dL (0.2-2.8) H 03/18/16 10:22 Blood Type A POSITIVE 03/17/16 17:05 Antibody Screen Negative 03/17/16 17:05
--- NOTE | 2016-03-19 18:14 | Cat Scan Report ---
FINAL REPORT PROCEDURE: CT abdomen and pelvis with contrast. TECHNIQUE: Computerized axial tomography of the abdomen and pelvis was performed after the IV injection of iodinated nonionic contrast. HISTORY: Lung cancer. COMPARISON: CT abdomen and pelvis 01/16/2016. FINDINGS: The right lower lobe mass is only partially imaged. There is a new tiny right pleural effusion. The heart size is normal. There are 3 new focal masses of low attenuation within the liver. These are located in the upper portion of the anterior segment of the right lobe. The largest lesion measures 13.5 millimeters in diameter. The appearance of these lesions is worrisome for metastatic disease. The spleen and pancreas are unremarkable. Cholecystectomy clips are present. There is no biliary dilatation. The adrenal glands are not enlarged. There is a small cyst in the right kidney. There are several simple cysts in the left kidney. The abdominal aorta has a normal caliber. There is no retroperitoneal adenopathy. There is moderately severe diverticulosis in the sigmoid colon. The large uterus has been removed. There is a new large cavity located superior to the bladder and contiguous with the vaginal cuff. This measures approximately 5.4 centimeters x 4.6 centimeters in cross-section. It is predominantly filled with air. There may be some fluid or debris in the dependent portion of this cavity. I am suspicious that the air may be entering through the vagina. Clinical correlation is recommended. A pelvic abscess cannot be excluded. The bladder is distended. There is a moderate sized ventral wall hernia located lateral to the right rectus abdominus muscle. This hernia contains abdominal fat and some loops of small bowel. There are no signs of intestinal obstruction. The regional skeleton appears intact. IMPRESSION: Definite metastatic disease in the liver. New tiny right pleural effusion. Interval hysterectomy, possibly transvaginal. New large cavity containing predominantly air and a small amount of fluid or debris in the mid pelvis. I am suspicious that this may communicate through the vaginal cuff. A pelvic abscess cannot be excluded. Right-sided ventral wall hernia. Bilateral renal cysts, greater on the left.
[2016-03-19] MEDS: REMERON PO SCH (23:09)
[2016-03-19] MEDS: ZOCOR PO SCH (23:10)
[2016-03-20] MEDS: FLAGYL PO SCH ×3 (05:54→22:01)
[2016-03-20 08:31] LABS: Hematocrit 30.1 % (30.3-42.9); Hemoglobin 9.7 gm/dl (10.1-14.3); Mean Corpuscular HGB Conc 32 % (30-34); Mean Corpuscular Hemoglobin 27 pg (28-32); Mean Corpuscular Volume 83 fl (79-97); Platelet Count 184 K/mm3 (140-440); Red Blood Count 3.63 M/mm3 (3.65-5.03); Red Cell Distribution Width 16.6 % (13.2-15.2)
[2016-03-20 08:32] LABS: White Blood Count 20.3 K/mm3 (4.5-11.0)
[2016-03-20 09:01] LABS: Anion Gap 16 mmol/L; Blood Urea Nitrogen 12 mg/dL (7-17); Calcium 8.2 mg/dL (8.4-10.2); Carbon Dioxide 19 mmol/L (22-30); Chloride 110.2 mmol/L (98-107); Glucose 169 mg/dL (65-100); Magnesium 1.5 mg/dL (1.7-2.3); Phosphorous 2.1 mg/dL (2.5-4.5); Potassium 3.2 mmol/L (3.6-5.0); Sodium 142 mmol/L (137-145)
[2016-03-20] MEDS: NOVOLOG SUB-Q SCH ×4 (09:27→22:20)
[2016-03-20] MEDS: MEGACE PO SCH ×2 (09:27→14:25)
[2016-03-20] MEDS: MAXZIDE-25 PO SCH (09:28)
[2016-03-20] MEDS: COREG PO SCH (09:28)
[2016-03-20] MEDS: LOVENOX SUB-Q SCH (09:28)
--- NOTE | 2016-03-20 10:29 | Progress Note ---
Assessment and Plan Assessment and plan: --Hypokalemia/hypomagnesemia/hypophosphatemia Replenish per protocol and monitor levels --Right lung abscess on CT ,history of of metastatic lung cancer Cardiothoracic surgical evaluation, IV antibiotics, supportive care --Pelvic abscess on CT, IV antibiotics Surgical/[employer] evaluation for assistance with management --Metastatic lung cancer, oncology following, --History of C. difficile colitis, continue Flagyl contact isolation --Intractable nausea vomiting; significantly improved supportive care --Type 2 diabetes mellitus, hemoglobin A1c less than 6, Accu-Chek sliding scale coverage and ADA diet --Hypertension well-controlled, continue current antihypertensives --Dyslipidemia stable on lipid-lowering medications --Full CODE STATUS Closely monitor the patient and adjust the management as needed Plan of care discussed with the patient as well as the nurse History Interval history: Seen and evaluated medical records reviewed Looks chronically ill and dehydrated and cachectic Denies nausea and vomiting, complains of loss of appetite Vital signs reviewed Hospitalist Physical - Constitutional Vitals: Temp Pulse Resp BP Pulse Ox 98.5 F 76 18 154/71 100 03/20/16 08:20 03/20/16 08:20 03/20/16 08:20 03/20/16 08:20 03/20/16 10:00 General appearance: Present: mild distress, cachectic, disheveled - EENT Eyes: Present: PERRL, EOM intact - Neck Neck: Present: supple, normal ROM - Respiratory Respiratory effort: normal Respiratory: bilateral: diminished (right more than left), rhonchi, negative: rales, wheezing - Cardiovascular Rhythm: regular Heart Sounds: Present: S1 & S2 - Extremities Extremities: no ischemia, pulses intact, pulses symmetrical Peripheral Pulses: within normal limits - Abdominal General gastrointestinal: soft, non-tender, non-distended, normal bowel sounds - Integumentary Integumentary: Present: clear, warm - Psychiatric Psychiatric: appropriate mood/affect, cooperative - Neurologic Neurologic: CNII-XII intact, moves all extremities Results - Labs CBC & Chem 7: 03/20/16 08:00 03/20/16 08:00 Labs: Laboratory Last Values WBC 20.3 K/mm3 (4.5-11.0) H 03/20/16 08:00 RBC 3.63 M/mm3 (3.65-5.03) L 03/20/16 08:00 Hgb 9.7 gm/dl (10.1-14.3) L 03/20/16 08:00 Hct 30.1 % (30.3-42.9) L 03/20/16 08:00 MCV 83 fl (79-97) 03/20/16 08:00 MCH 27 pg (28-32) L 03/20/16 08:00 MCHC 32 % (30-34) 03/20/16 08:00 RDW 16.6 % (13.2-15.2) H 03/20/16 08:00 Plt Count 184 K/mm3 (140-440) 03/20/16 08:00 Lymph % (Auto) 22.1 % (13.4-35.0) 03/17/16 17:05 [place] % (Auto) 8.8 % (0.0-7.3) H 03/17/16 17:05 Eos % (Auto) 0.3 % (0.0-4.3) 03/17/16 17:05 Baso % (Auto) 0.2 % (0.0-1.8) 03/17/16 17:05 Lymph # 3.2 K/mm3 (1.2-5.4) 03/17/16 17:05 [place] # 1.3 K/mm3 (0.0-0.8) H 03/17/16 17:05 Eos # 0.0 K/mm3 (0.0-0.4) 03/17/16 17:05 Baso # 0.0 K/mm3 (0.0-0.1) 03/17/16 17:05 Add Manual Diff Complete 03/19/16 07:45 Total Counted 100 03/19/16 07:45 Seg Neutrophils % 68.6 % (40.0-70.0) 03/17/16 17:05 Seg Neuts % (Manual) 87.0 % (40.0-70.0) H 03/19/16 07:45 Band Neutrophils % 0 % 03/19/16 07:45 Lymphocytes % (Manual) 10.0 % (13.4-35.0) L 03/19/16 07:45 Reactive Lymphs % (Man) 0 % 03/19/16 07:45 Monocytes % (Manual) 3.0 % (0.0-7.3) 03/19/16 07:45 Eosinophils % (Manual) 0 % (0.0-4.3) 03/19/16 07:45 Basophils % (Manual) 0 % (0.0-1.8) 03/19/16 07:45 Metamyelocytes % 0 % 03/19/16 07:45 Myelocytes % 0 % 03/19/16 07:45 Promyelocytes % 0 % 03/19/16 07:45 Blast Cells % 0 % 03/19/16 07:45 Nucleated RBC % Not Reportable 03/19/16 07:45 Seg Neutrophils # 9.9 K/mm3 (1.8-7.7) H 03/17/16 17:05 Seg Neutrophils # Man 18.2 K/mm3 (1.8-7.7) H 03/19/16 07:45 Band Neutrophils # 0.0 K/mm3 03/19/16 07:45 Lymphocytes # (Manual) 2.1 K/mm3 (1.2-5.4) 03/19/16 07:45 Abs React Lymphs (Man) 0.0 K/mm3 03/19/16 07:45 Monocytes # (Manual) 0.6 K/mm3 (0.0-0.8) 03/19/16 07:45 Eosinophils # (Manual) 0.0 K/mm3 (0.0-0.4) 03/19/16 07:45 Basophils # (Manual) 0.0 K/mm3 (0.0-0.1) 03/19/16 07:45 Metamyelocytes # 0.0 K/mm3 03/19/16 07:45 Myelocytes # 0.0 K/mm3 03/19/16 07:45 Promyelocytes # 0.0 K/mm3 03/19/16 07:45 Blast Cells # 0.0 K/mm3 03/19/16 07:45 WBC Morphology Not Reportable 03/19/16 07:45 Hypersegmented Neuts Not Reportable 03/19/16 07:45 Hyposegmented Neuts Not Reportable 03/19/16 07:45 Hypogranular Neuts Not Reportable 03/19/16 07:45 Smudge Cells Not Reportable 03/19/16 07:45 Toxic Granulation Not Reportable 03/19/16 07:45 Toxic Vacuolation Not Reportable 03/19/16 07:45 Dohle Bodies Not Reportable 03/19/16 07:45 Pelger-Huet Anomaly Not Reportable 03/19/16 07:45 Germania Rods Not Reportable 03/19/16 07:45 Platelet Estimate Appears normal 03/19/16 07:45 Clumped Platelets Not Reportable 03/19/16 07:45 Plt Clumps, EDTA Not Reportable 03/19/16 07:45 Large Platelets Not Reportable 03/19/16 07:45 Giant Platelets Not Reportable 03/19/16 07:45 Platelet Satelliting Not Reportable 03/19/16 07:45 Plt Morphology Comment Not Reportable 03/19/16 07:45 RBC Morphology Not Reportable 03/19/16 07:45 Dimorphic RBCs Not Reportable 03/19/16 07:45 Polychromasia Rare 03/19/16 07:45 Hypochromasia Not Reportable 03/19/16 07:45 Poikilocytosis Not Reportable 03/19/16 07:45 Anisocytosis Rare 03/19/16 07:45 Microcytosis Not Reportable 03/19/16 07:45 Macrocytosis Not Reportable 03/19/16 07:45 Spherocytes Not Reportable 03/19/16 07:45 Pappenheimer Bodies Not Reportable 03/19/16 07:45 Sickle Cells Not Reportable 03/19/16 07:45 Target Cells Not Reportable 03/19/16 07:45 Tear Drop Cells Not Reportable 03/19/16 07:45 Ovalocytes Not Reportable 03/19/16 07:45 Helmet Cells Not Reportable 03/19/16 07:45 [place] Bodies Not Reportable 03/19/16 07:45 [place] Rings Not Reportable 03/19/16 07:45 [place] Cells Not Reportable 03/19/16 07:45 Bite Cells Not Reportable 03/19/16 07:45 Crenated Cell Not Reportable 03/19/16 07:45 Elliptocytes Not Reportable 03/19/16 07:45 Acanthocytes (Spur) Not Reportable 03/19/16 07:45 Rouleaux Not Reportable 03/19/16 07:45 Hemoglobin C Crystals Not Reportable 03/19/16 07:45 Schistocytes Not Reportable 03/19/16 07:45 Malaria parasites Not Reportable 03/19/16 07:45 Christian Bodies Not Reportable 03/19/16 07:45 Hem Pathologist Commnt No 03/19/16 07:45 PT 15.7 Sec. (12.2-14.9) H 03/17/16 17:05 INR 1.26 (0.87-1.13) H 03/17/16 17:05 APTT 34.3 Sec. (24.2-36.6) 03/17/16 17:05 POC ABG pH 7.413 (7.35-7.45) 03/18/16 09:10 POC ABG pCO2 27.9 (35-45) L 03/18/16 09:10 POC ABG pO2 94 (80-105) 03/18/16 09:10 POC ABG HCO3 17.8 03/18/16 09:10 POC ABG Total CO2 19 03/18/16 09:10 POC ABG O2 Sat 98 03/18/16 09:10 POC ABG Base Excess -7 03/18/16 09:10 FiO2 21 % 03/18/16 09:10 Sodium 142 mmol/L (137-145) 03/20/16 08:00 Potassium 3.2 mmol/L (3.6-5.0) L D 03/20/16 08:00 Chloride 110.2 mmol/L (98-107) H 03/20/16 08:00 Carbon Dioxide 19 mmol/L (22-30) L 03/20/16 08:00 Anion Gap 16 mmol/L 03/20/16 08:00 BUN 12 mg/dL (7-17) 03/20/16 08:00 Creatinine 0.8 mg/dL (0.7-1.2) 03/20/16 08:00 Estimated GFR > 60 ml/min 03/20/16 08:00 BUN/Creatinine Ratio 15.00 % 03/20/16 08:00 Glucose 169 mg/dL (65-100) H 03/20/16 08:00 POC Glucose 181 (70-105) H 03/20/16 06:52 Hemoglobin A1c 5.8 % (4-6) 03/18/16 14:57 Calcium 8.2 mg/dL (8.4-10.2) L 03/20/16 08:00 Phosphorus 2.1 mg/dL (2.5-4.5) L 03/20/16 08:00 Magnesium 1.5 mg/dL (1.7-2.3) L 03/20/16 08:00 Total Bilirubin 0.5 mg/dL (0.1-1.2) 03/19/16 07:45 AST 8 units/L (5-40) 03/19/16 07:45 ALT < 5 units/L (7-56) L 03/19/16 07:45 Alkaline Phosphatase 75 units/L (35-129) 03/19/16 07:45 NT-Pro-B Natriuret Pep 642.1 pg/mL (0-900) 03/18/16 10:22 Total Protein 5.9 g/dL (6.3-8.2) L 03/19/16 07:45 Albumin 2.0 g/dL (3.9-5) L 03/19/16 07:45 Albumin/Globulin Ratio 0.5 % 03/19/16 07:45 Lipase 6 units/L (13-60) L 03/17/16 17:05 Urine Color Yellow (Yellow) 03/18/16 Unknown Urine Turbidity Cloudy (Clear) 03/18/16 Unknown Urine pH 6.0 (5.0-7.0) 03/18/16 Unknown Ur Specific [place] 1.005 (1.003-1.030) 03/18/16 Unknown Urine Protein 30 mg/dl mg/dL (Negative) 03/18/16 Unknown Urine Glucose (UA) Negative mg/dL (Negative) 03/18/16 Unknown Urine Ketones Negative mg/dL (Negative) 03/18/16 Unknown Urine Blood Moderate (Negative) 03/18/16 Unknown Urine Nitrite Positive (Negative) 03/18/16 Unknown Urine Bilirubin Negative (Negative) 03/18/16 Unknown Urine Urobilinogen < 2.0 mg/dL (<2.0) 03/18/16 Unknown Ur Leukocyte Esterase Negative (Negative) 03/18/16 Unknown Urine WBC (Auto) 7.0 /HPF (0.0-6.0) H 03/18/16 Unknown Urine RBC (Auto) 2.0 /HPF (0.0-6.0) 03/18/16 Unknown U Epithel Cells (Auto) 7.0 /HPF (0-13.0) 03/18/16 Unknown Urine Bacteria (Auto) 4+ /HPF (Negative) 03/18/16 Unknown Ketones 3.8 mg/dL (0.2-2.8) H 03/18/16 10:22 Blood Type A POSITIVE 03/17/16 17:05 Antibody Screen Negative 03/17/16 17:05
[2016-03-20 10:38] LABS: Basophils % (Manual) 0 % (0.0-1.8); Blastocytes % (Manual) 0 %; Eosinophils % (Manual) 0 % (0.0-4.3)
[2016-03-20 10:43] LABS: Anisocytosis Few
[2016-03-20 10:44] LABS: Diff Status Complete
[2016-03-20] MEDS ORDERED: K-DUR PO ONE ×2 (11:00→14:14)
[2016-03-20] MEDS: ZOSYN/NS 4.5GM/100ML 100 ML IV SCH ×2 (14:26→22:02)
--- NOTE | 2016-03-20 17:23 | Hem/Onc Progress Note ---
Assessment and Plan 1. lung cancer- primary mass slightly larger. lesions in liver c/f metastases. d/w patient. MRI brain pending. 2. lung abscess- pulmonary and CT surgery consulted 3. pelvic abscess- consider surgical consultation Subjective Date of service: 03/20/16 Interval history: no acute events Objective - Constitutional Vitals: Last Vital Signs Temp 98.0 F 03/20/16 12:55 Pulse 80 03/20/16 12:55 Resp 18 03/20/16 12:55 BP 141/70 03/20/16 12:55 Pulse Ox 99 03/20/16 12:55 General appearance: no acute distress - Neck Neck: supple - Respiratory Respiratory: bilateral: CTA - Cardiovascular Rhythm: regular Extremities: No edema - Gastrointestinal General gastrointestinal: Present: soft - Labs Lab Results: Laboratory Results - last 24 hr 03/19/16 03/20/16 03/20/16 22:08 06:52 08:00 WBC 20.3 H RBC 3.63 L Hgb 9.7 L Hct 30.1 L MCV 83 MCH 27 L MCHC 32 RDW 16.6 H Plt Count 184 Add Manual Diff Complete Total Counted 100 Seg Neuts % (Manual) 86.0 H Band Neutrophils % 0 Lymphocytes % (Manual) 9.0 L Reactive Lymphs % (Man) 0 Monocytes % (Manual) 5.0 Eosinophils % (Manual) 0 Basophils % (Manual) 0 Metamyelocytes % 0 Myelocytes % 0 Promyelocytes % 0 Blast Cells % 0 Nucleated RBC % Not Reportable Seg Neutrophils # Man 17.5 H Band Neutrophils # 0.0 Lymphocytes # (Manual) 1.8 Abs React Lymphs (Man) 0.0 Monocytes # (Manual) 1.0 H Eosinophils # (Manual) 0.0 Basophils # (Manual) 0.0 Metamyelocytes # 0.0 Myelocytes # 0.0 Promyelocytes # 0.0 Blast Cells # 0.0 WBC Morphology Not Reportable Hypersegmented Neuts Not Reportable Hyposegmented Neuts Not Reportable Hypogranular Neuts Not Reportable Smudge Cells Not Reportable Toxic Granulation Not Reportable Toxic Vacuolation Not Reportable Dohle Bodies Not Reportable Pelger-Huet Anomaly Not Reportable Germania Rods Not Reportable Platelet Estimate Appears normal Clumped Platelets Not Reportable Plt Clumps, EDTA Not Reportable Large Platelets Not Reportable Giant Platelets Not Reportable Platelet Satelliting Not Reportable Plt Morphology Comment Not Reportable RBC Morphology Not Reportable Dimorphic RBCs Not Reportable Polychromasia Not Reportable Hypochromasia Not Reportable Poikilocytosis Not Reportable Anisocytosis Few Microcytosis Not Reportable Macrocytosis Not Reportable Spherocytes Not Reportable Pappenheimer Bodies Not Reportable Sickle Cells Not Reportable Target Cells Not Reportable Tear Drop Cells Not Reportable Ovalocytes Not Reportable Helmet Cells Not Reportable [place] Bodies Not Reportable [place] Rings Not Reportable Rory Cells Not Reportable Bite Cells Not Reportable Crenated Cell Not Reportable Elliptocytes Not Reportable Acanthocytes (Spur) Not Reportable Rouleaux Not Reportable Hemoglobin C Crystals Not Reportable Schistocytes Not Reportable Malaria parasites Not Reportable Christian Bodies Not Reportable Hem Pathologist Commnt No Sodium Potassium Chloride Carbon Dioxide Anion Gap BUN Creatinine Estimated GFR BUN/Creatinine Ratio Glucose POC Glucose 224 H 181 H Calcium Phosphorus Magnesium 03/20/16 03/20/16 03/20/16 08:00 12:55 16:38 WBC RBC Hgb Hct MCV MCH MCHC RDW Plt Count Add Manual Diff Total Counted Seg Neuts % (Manual) Band Neutrophils % Lymphocytes % (Manual) Reactive Lymphs % (Man) Monocytes % (Manual) Eosinophils % (Manual) Basophils % (Manual) Metamyelocytes % Myelocytes % Promyelocytes % Blast Cells % Nucleated RBC % Seg Neutrophils # Man Band Neutrophils # Lymphocytes # (Manual) Abs React Lymphs (Man) Monocytes # (Manual) Eosinophils # (Manual) Basophils # (Manual) Metamyelocytes # Myelocytes # Promyelocytes # Blast Cells # WBC Morphology Hypersegmented Neuts Hyposegmented Neuts Hypogranular Neuts Smudge Cells Toxic Granulation Toxic Vacuolation Dohle Bodies Pelger-Huet Anomaly Germania Rods Platelet Estimate Clumped Platelets Plt Clumps, EDTA Large Platelets Giant Platelets Platelet Satelliting Plt Morphology Comment RBC Morphology Dimorphic RBCs Polychromasia Hypochromasia Poikilocytosis Anisocytosis Microcytosis Macrocytosis Spherocytes Pappenheimer Bodies Sickle Cells Target Cells Tear Drop Cells Ovalocytes Helmet Cells [place] Bodies [place] Rings Rory Cells Bite Cells Crenated Cell Elliptocytes Acanthocytes (Spur) Rouleaux Hemoglobin C Crystals Schistocytes Malaria parasites Christian Bodies Hem Pathologist Commnt Sodium 142 Potassium 3.2 L D Chloride 110.2 H Carbon Dioxide 19 L Anion Gap 16 BUN 12 Creatinine 0.8 Estimated GFR > 60 BUN/Creatinine Ratio 15.00 Glucose 169 H POC Glucose 127 H 270 H Calcium 8.2 L Phosphorus 2.1 L Magnesium 1.5 L
[2016-03-20] MEDS ORDERED: NACL 0.9% IV ONE (17:36)
[2016-03-20] MEDS ORDERED: KPHOS 30 MMOL in NACL 0.9% 500 ML 500 ML IV ONE (17:36)
[2016-03-20] MEDS ORDERED: MAGNESIUM SULFATE IV ONE (17:36)
--- NOTE | 2016-03-20 18:47 | Event Note ---
Date: 03/20/16 Asked to see this patient with numerious co-morbids for incidental finding on imaging of pelvic abscess. Review of chart shows a prior hx of pelvic abscess s/ p hysterectomy by Dr Samina Isaac on 01/17/16. Have informed hospitalist compliance professional of above information. Attached in a copy of D/C summary from 02/13/2016. 70 y.o. female with lung cancer undergoing chemo, admitted to [facility] with diarrhea and abdominal pain; found to be septic secondary to pelvic abscess. Pt was taken for ex lap for drainage of pelvic and uterine abscess on 01/17/16; also required hysterectomy during surgery. Post-op course complicated by severe hypotension requiring intubation (extubated 01/18); worsening diarrhea identified as C. 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 Pt completed IV ABX course; po Vanco until 02/06 for CDiff; diet has been advanced to regular with slowly improving appetite; intermittent vaginal bleeding has resolved. Pt continued with functional deficits and was admitted to IRU for aggressive therapies and ongoing medical management. IRU course was significant for recurrent diarrhea; negative repeat CDiff; pt completed oral Vanco during course. GI was consulted and diarrhea improved with probiotics and questran. Generalized weakness and functional deficits also improved during course. On admission, pt required s/u to modA for ADLs; modA-CGA for transfers, Myke/CGA for gait up to 55 feet with RW. At the time of discharge, pt progressed to [place] to supervision for ADLs; supervision for transfers; Sorin for stairs and gait up to 340 feet. Family training was completed with sister prior to d/c home.
[2016-03-20] MEDS: REMERON PO SCH (22:00)
[2016-03-20] MEDS: ZOCOR PO SCH (22:00)
--- NOTE | 2016-03-21 00:03 | Magnetic Resonance Report ---
FINAL REPORT PROCEDURE: MRA head without contrast. TECHNIQUE: Axial 3-D [id number] MR angiography of the [place] of [place] and brain was performed. The source images were reconstructed in various views using maximum intensity projection. HISTORY: Lung cancer, confusion. COMPARISON: No prior studies are available for comparison. FINDINGS: The distal right internal carotid artery is widely patent. There is a severe focal stenosis in the distal left internal carotid artery. This is located just before the artery enters the skullbase. Right anterior cerebral artery is patent. The left anterior cerebral artery fills via a patent anterior communicating artery. The left A1 segment of the anterior cerebral artery is absent. This may be a congenital condition. Both middle cerebral arteries are patent. The posterior communicating arteries are not visible. Both distal vertebral arteries are patent. Both posterior inferior cerebellar arteries are patent. The basilar artery is patent. Both anterior inferior cerebellar arteries are patent. Both superior cerebellar and both posterior cerebral arteries are patent. There are no signs of aneurysm disease. There are no signs of a vasculitis. There are no definite embolic occlusions. IMPRESSION: High-grade focal stenosis in the high cervical portion of the left internal carotid artery. 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 Otherwise normal study.
[2016-03-21] MEDS: D5NS 1,000 ML IV SCH ×2 (01:18→16:30)
[2016-03-21] MEDS: ZOSYN/NS 4.5GM/100ML 100 ML IV SCH ×3 (05:45→22:56)
[2016-03-21] MEDS: FLAGYL PO SCH ×3 (05:45→23:10)
[2016-03-21] MEDS: NOVOLOG SUB-Q SCH ×4 (08:59→23:11)
[2016-03-21] MEDS: LOVENOX SUB-Q SCH (09:00)
[2016-03-21] MEDS: COREG PO SCH (09:00)
[2016-03-21] MEDS: MAXZIDE-25 PO SCH (09:00)
[2016-03-21] MEDS: MEGACE PO SCH (09:01)
--- NOTE | 2016-03-21 09:08 | Consultation ---
History of Present Illness Consult date: 03/21/16 History of present illness: Called to evaluate case of a 70-year-old -[place] female. Patient admitted to the hospital with history of diarrhea in the context of history of COPD and lung cancer. Personally diagnosis of lung cancer in the right lung, currently followed by oncology. The patient presented with weakness associated with episodes of diarrhea. This appears to be controlled but she underwent chest CT scan evaluation which showed a cavitary mass in the right lung. Reported has consistent with either cavitary neoplasm versus lung abscess. We are called to evaluate the patient. Respiratory-blake, the patient reports some fatigue but no additional complaints. In recent weeks, she denies any history of expectoration. She does have an intermittent cough. No fever, chills or night sweats reported. She denies any hemoptysis. She had been losing some weight. Feels also weak. No chest pain, no additional respiratory complaints at this time. Past History Past Medical History: CAD, COPD, other (lung cancer) Medications and Allergies Allergies Allergy/AdvReac Type Severity Reaction Status Date / Time No Known Allergies Allergy Verified 05/16/14 09:12 Home Medications Medication Instructions Recorded Confirmed Last Taken Type Multivitamin [Multi-Vitamin Daily] 1 tab PO DAILY 05/16/14 02/24/16 1 Week Ago History Acetaminophen [Acetaminophen TAB] 650 mg PO Q6H PRN #1 tablet 02/13/16 02/24/16 Unknown Rx Antacid [Alum-Mag Hydrox-Simeth 30 ml PO Q4H PRN #1 oral.liqd 02/13/16 02/24/16 Unknown Rx [id number]] Carvedilol [Coreg] 12.5 mg PO DAILY #30 tablet 02/13/16 02/24/16 Unknown Rx Cholestyramine (with Sugar) 4 gm PO QDAY #30 packet 02/13/16 02/24/16 Unknown Rx [Questran] Lactobacillus Acidophil [Floranex] 1 each PO BID #60 packet 02/13/16 02/24/16 Unknown Rx Megestrol [Megace] 400 mg PO QDAY 30 Days 02/13/16 02/24/16 Unknown Rx Mirtazapine [Remeron] 15 mg PO QHS #30 tablet 02/13/16 02/24/16 Unknown Rx Simvastatin [Zocor TAB] 5 mg PO DAILY #30 tablet 02/13/16 02/24/16 Unknown Rx Triamter/Hctz 37.5-25 mg 1 tab PO DAILY #30 tablet 02/13/16 02/24/16 Unknown Rx [Maxzide-25] metroNIDAZOLE [Flagyl] 500 mg PO Q8HR #30 tablet 02/27/16 Unknown Rx Oxycodone HCl/Acetaminophen 1 each PO Q6HR PRN #15 tablet 03/18/16 Unknown Rx [Percocet 7.5/325 mg] Active Meds: Active Medications Acetaminophen (Tylenol) 650 mg PO Q6H PRN PRN Reason: Pain, Mild (1-3) Al Hydrox/Mg Hydrox/Simethicone (Alum-Mag Hydrox-Simeth [phone]/5ml) 30 ml PO Q4H PRN PRN Reason: Indigestion Bisacodyl (Dulcolax) 10 mg AK QDAY PRN PRN Reason: Constipation unrelieved by MOM Carvedilol (Coreg) 12.5 mg PO DAILY [facility] Last Admin: 03/21/16 09:00 Dose: 12.5 mg Enoxaparin Sodium (Lovenox) 40 mg SUB-Q QDAY [facility] Last Admin: 03/21/16 09:00 Dose: 40 mg Hydromorphone HCl (Dilaudid) 1 mg IV Q3H PRN PRN Reason: Pain , Severe (7-10) Dextrose/Sodium Chloride (D5ns) 1,000 mls @ 75 mls/hr IV DIRECT [facility] Last Admin: 03/21/16 01:18 Dose: 75 mls/hr Piperacillin Sod/Tazobactam Sod (Zosyn/Ns 4.5gm/100ml) 100 mls @ 200 mls/hr IV Q8HR [facility] PRN Reason: Protocol Last Admin: 03/21/16 05:45 Dose: 200 mls/hr Insulin Aspart (Novolog) 0 units SUB-Q ACHS [facility] PRN Reason: Protocol Last Admin: 03/21/16 08:59 Dose: 2 units Magnesium Hydroxide (Milk Of Magnesia) 30 ml PO Q4H PRN PRN Reason: Constipation Megestrol Acetate (Megace) 400 mg PO QDAY [facility] Last Admin: 03/21/16 09:01 Dose: 400 mg Metronidazole (Flagyl) 500 mg PO Q8HR [facility] Last Admin: 03/21/16 05:45 Dose: 500 mg Mirtazapine (Remeron) 15 mg PO QHS [facility] Last Admin: 03/20/16 22:00 Dose: 15 mg Ondansetron HCl (Zofran) 4 mg IV Q3H PRN PRN Reason: N/V unrelieved by Reglan Oxycodone/Acetaminophen (Percocet 5/325) 1 tab PO Q6H PRN PRN Reason: Pain, Moderate (4-6) Last Admin: 03/18/16 22:37 Dose: 1 tab Simvastatin (Zocor) 5 mg PO QHS [facility] Last Admin: 03/20/16 22:00 Dose: 5 mg Triamterene/HCTZ (Maxzide-25) 1 each PO DAILY [facility] Last Admin: 03/21/16 09:00 Dose: 1 each Review of Systems Constitutional: weight loss Ears, nose, mouth and throat: deferred Breasts: normal Cardiovascular: no chest pain, no orthopnea, no palpitations, no edema, no syncope Respiratory: cough, shortness of breath, dyspnea on exertion, no hemoptysis, no congestion, no wheezing Gastrointestinal: diarrhea, no abdominal pain, no vomiting Integumentary: no rash Neurological: weakness, no paralysis, no parathesias, no numbness, no tingling, no seizures, no syncope Psychiatric: change in sleep habits Hematologic/Lymphatic: no easy bruising, no easy bleeding, no lymphadenopathy, no lymphedema Allergic/Immunologic: no urticaria Physical Examination Vital signs: Vital Signs Temp Pulse Resp BP Pulse Ox 97.3 F L 88 18 118/87 100 03/17/16 16:22 03/17/16 16:22 03/17/16 16:22 03/17/16 16:22 03/17/16 16:22 General appearance: no acute distress, alert Eyes: non-icteric ENT: oropharynx moist Neck: supple Effort: normal Ascultation: Bilateral: clear, diminished breath sounds Percussion: Bilateral: not dull Tactile fremitus: Bilateral: normal Cardiovascular: regular rate and rhythm Gastrointestinal: normoactive bowel sounds, non-distended Integumentary: normal Extremities: no cyanosis, no edema Musculoskeletal: no deformities normal mental status, non-focal exam, CN II-XII normal mood appropriate Results - Laboratory Findings CBC and BMP: 03/20/16 08:00 03/20/16 08:00 ABG POC ABG pH 7.413 (7.35-7.45) 03/18/16 09:10 POC ABG pCO2 27.9 (35-45) L 03/18/16 09:10 POC ABG pO2 94 (80-105) 03/18/16 09:10 POC ABG HCO3 17.8 03/18/16 09:10 POC ABG Total CO2 19 03/18/16 09:10 POC ABG O2 Sat 98 03/18/16 09:10 PT/INR, D-dimer PT 15.7 Sec. (12.2-14.9) H 03/17/16 17:05 INR 1.26 (0.87-1.13) H 03/17/16 17:05 Abnormal lab findings: Abnormal Labs 03/18/16 03/19/16 03/19/16 Unknown 06:02 07:45 WBC 20.9 H RBC Hgb Hct MCH 27 L RDW 16.6 H Seg Neuts % (Manual) 87.0 H Lymphocytes % (Manual) 10.0 L Seg Neutrophils # Man 18.2 H Monocytes # (Manual) Potassium Chloride Carbon Dioxide BUN Glucose POC Glucose 137 H Calcium Phosphorus Magnesium ALT Total Protein Albumin Urine WBC (Auto) 7.0 H 03/19/16 03/19/16 03/19/16 07:45 11:34 16:47 WBC RBC Hgb Hct MCH RDW Seg Neuts % (Manual) Lymphocytes % (Manual) Seg Neutrophils # Man Monocytes # (Manual) Potassium Chloride 114.8 H Carbon Dioxide 20 L BUN 19 H Glucose 121 H POC Glucose 211 H 142 H Calcium Phosphorus Magnesium ALT < 5 L Total Protein 5.9 L Albumin 2.0 L Urine WBC (Auto) 03/19/16 03/20/16 03/20/16 22:08 06:52 08:00 WBC 20.3 H RBC 3.63 L Hgb 9.7 L Hct 30.1 L MCH 27 L RDW 16.6 H Seg Neuts % (Manual) 86.0 H Lymphocytes % (Manual) 9.0 L Seg Neutrophils # Man 17.5 H Monocytes # (Manual) 1.0 H Potassium Chloride Carbon Dioxide BUN Glucose POC Glucose 224 H 181 H Calcium Phosphorus Magnesium ALT Total Protein Albumin Urine WBC (Auto) 03/20/16 03/20/16 03/20/16 08:00 12:55 16:38 WBC RBC Hgb Hct MCH RDW Seg Neuts % (Manual) Lymphocytes % (Manual) Seg Neutrophils # Man Monocytes # (Manual) Potassium 3.2 L D Chloride 110.2 H Carbon Dioxide 19 L BUN Glucose 169 H POC Glucose 127 H 270 H Calcium 8.2 L Phosphorus 2.1 L Magnesium 1.5 L ALT Total Protein Albumin Urine WBC (Auto) 03/20/16 03/21/16 21:39 05:44 WBC RBC Hgb Hct MCH RDW Seg Neuts % (Manual) Lymphocytes % (Manual) Seg Neutrophils # Man Monocytes # (Manual) Potassium Chloride Carbon Dioxide BUN Glucose POC Glucose 144 H 189 H Calcium Phosphorus Magnesium ALT Total Protein Albumin Urine WBC (Auto) - Diagnostic Findings Chest x-ray: report reviewed CT scan - chest: report reviewed, image reviewed Assessment and Plan - Respiratory mass right lung. 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 The procedure for a lung abscess is not very strong in terms of systemic symptoms. This being said, she had leukocytosis with increased cough, that may be warrant to initiate antibiotics to cover for the possibility of intracavitary infection. -Diarrhea. Improving -COPD Recommendations I agree with Zosyn treatment at this point. Continued diarrhea workup Sputum culture Workup for clostridium difficile and monitor symptoms under antibiotic treatment . If no obvious reason for infection from the pulmonary standpoint , she might be amenable to heart short course of antibiotics, perhaps 14 days
[2016-03-21 09:26] LABS: Anion Gap 15 mmol/L; BUN/Creatinine Ratio 11.25; Blood Urea Nitrogen 9 mg/dL (7-17); Calcium 7.8 mg/dL (8.4-10.2); Carbon Dioxide 17 mmol/L (22-30); Chloride 111.5 mmol/L (98-107); Glucose 181 mg/dL (65-100); Magnesium 2.1 mg/dL (1.7-2.3); Potassium 4.2 mmol/L (3.6-5.0); Sodium 139 mmol/L (137-145)
--- NOTE | 2016-03-21 12:48 | Progress Note ---
Assessment and Plan 70 y/o female well known to me. Hx Lung CA, liver mets. s/p JESE secondary to uterine infection. now pelvic abscess Pt feeling well without compl. Abd soft. yarelis diet CT - 5 x 5 cm pelvic abscess continuos to vag cuff imp as above pt stable ID eval IR eval - for CT guided pelvic abscess drainage. Medical Office Administrator. if abscess not amenable to CT guided drainage, then pt will need to go to OR, placed in stirrups, and have drainage thru vaginal vault approach Selected Entries 03/21/16 08:20 Temperature 98.0 F Pulse Rate [ 78 Left Radial] Respiratory 18 Rate Blood Pressure 137/80 [Left Arm] Laboratory Tests 03/20/16 08:00 WBC 20.3 H Hgb 9.7 L Hct 30.1 L Objective Vital Signs - 12hr 03/21/16 08:20 Temperature 98.0 F Pulse Rate [ 78 Left Radial] Respiratory 18 Rate Blood Pressure 137/80 [Left Arm] O2 Sat by Pulse 100 Oximetry - Labs 03/20/16 08:00 03/21/16 08:54 Diabetes panel 03/21/16 Range/Units 08:54 Potassium 4.2 D (3.6-5.0) mmol/L Carbon Dioxide 17 L (22-30) mmol/L BUN 9 (7-17) mg/dL Creatinine 0.8 (0.7-1.2) mg/dL Glucose 181 H (65-100) mg/dL Calcium 7.8 L (8.4-10.2) mg/dL Calcium panel 03/21/16 Range/Units 08:54 Calcium 7.8 L (8.4-10.2) mg/dL Pituitary panel 03/21/16 Range/Units 08:54 Potassium 4.2 D (3.6-5.0) mmol/L Carbon Dioxide 17 L (22-30) mmol/L BUN 9 (7-17) mg/dL Creatinine 0.8 (0.7-1.2) mg/dL Glucose 181 H (65-100) mg/dL Calcium 7.8 L (8.4-10.2) mg/dL Adrenal panel 03/21/16 Range/Units 08:54 Potassium 4.2 D (3.6-5.0) mmol/L Carbon Dioxide 17 L (22-30) mmol/L BUN 9 (7-17) mg/dL Creatinine 0.8 (0.7-1.2) mg/dL Glucose 181 H (65-100) mg/dL Calcium 7.8 L (8.4-10.2) mg/dL
--- NOTE | 2016-03-21 17:21 | Progress Note ---
Assessment and Plan Assessment and plan: --Hypokalemia/hypomagnesemia/hypophosphatemia Corrected --Right lung abscess on CT ,history of of metastatic lung cancer Cardiothoracic surgical evaluation pending, IV antibiotics, --Pelvic abscess on CT, IV antibiotics Surgical/CHEMICAL PROCESS ENGINEER evaluation noted, CT-guided aspiration of pelvic abscess scheduled --Metastatic lung cancer, oncology following, --History of C. difficile colitis, continue Flagyl contact isolation --Intractable nausea vomiting; significantly improved supportive care --Type 2 diabetes mellitus, hemoglobin A1c less than 6, Accu-Chek sliding scale coverage and ADA diet --Hypertension well-controlled, continue current antihypertensives --Dyslipidemia stable on lipid-lowering medications --Full CODE STATUS Continue current management ,plan of care discussed with the patient as well as the nurse History Interval history: Patient seen and evaluated medical records reviewed No new events reported by the nursing staff Pulmonary and surgical evaluation noted and appreciated Patient complains of generalized weakness Alert awake oriented 3 not in acute distress Hospitalist Physical - Constitutional Vitals: Temp Pulse Resp BP Pulse Ox 98.4 F 78 16 129/78 99 03/21/16 12:10 03/21/16 12:10 03/21/16 12:10 03/21/16 12:10 03/21/16 12:10 General appearance: Present: no acute distress, cachectic, disheveled - EENT Eyes: Present: PERRL, EOM intact - Neck Neck: Present: supple, normal ROM - Respiratory Respiratory effort: normal Respiratory: bilateral: diminished ( right more than left), rhonchi (occasional) - Cardiovascular Rhythm: regular Heart Sounds: Present: S1 & S2 - Extremities Extremities: no ischemia, pulses intact, pulses symmetrical Peripheral Pulses: within normal limits - Abdominal General gastrointestinal: soft, non-tender, non-distended, normal bowel sounds - Integumentary Integumentary: Present: clear, warm - Psychiatric Psychiatric: appropriate mood/affect, cooperative - Neurologic Neurologic: CNII-XII intact, moves all extremities Results - Labs CBC & Chem 7: 03/20/16 08:00 03/21/16 08:54 Labs: Laboratory Last Values WBC 20.3 K/mm3 (4.5-11.0) H 03/20/16 08:00 RBC 3.63 M/mm3 (3.65-5.03) L 03/20/16 08:00 Hgb 9.7 gm/dl (10.1-14.3) L 03/20/16 08:00 Hct 30.1 % (30.3-42.9) L 03/20/16 08:00 MCV 83 fl (79-97) 03/20/16 08:00 MCH 27 pg (28-32) L 03/20/16 08:00 MCHC 32 % (30-34) 03/20/16 08:00 RDW 16.6 % (13.2-15.2) H 03/20/16 08:00 Plt Count 184 K/mm3 (140-440) 03/20/16 08:00 Lymph % (Auto) 22.1 % (13.4-35.0) 03/17/16 17:05 [place] % (Auto) 8.8 % (0.0-7.3) H 03/17/16 17:05 Eos % (Auto) 0.3 % (0.0-4.3) 03/17/16 17:05 Baso % (Auto) 0.2 % (0.0-1.8) 03/17/16 17:05 Lymph # 3.2 K/mm3 (1.2-5.4) 03/17/16 17:05 [place] # 1.3 K/mm3 (0.0-0.8) H 03/17/16 17:05 Eos # 0.0 K/mm3 (0.0-0.4) 03/17/16 17:05 Baso # 0.0 K/mm3 (0.0-0.1) 03/17/16 17:05 Add Manual Diff Complete 03/20/16 08:00 Total Counted 100 03/20/16 08:00 Seg Neutrophils % 68.6 % (40.0-70.0) 03/17/16 17:05 Seg Neuts % (Manual) 86.0 % (40.0-70.0) H 03/20/16 08:00 Band Neutrophils % 0 % 03/20/16 08:00 Lymphocytes % (Manual) 9.0 % (13.4-35.0) L 03/20/16 08:00 Reactive Lymphs % (Man) 0 % 03/20/16 08:00 Monocytes % (Manual) 5.0 % (0.0-7.3) 03/20/16 08:00 Eosinophils % (Manual) 0 % (0.0-4.3) 03/20/16 08:00 Basophils % (Manual) 0 % (0.0-1.8) 03/20/16 08:00 Metamyelocytes % 0 % 03/20/16 08:00 Myelocytes % 0 % 03/20/16 08:00 Promyelocytes % 0 % 03/20/16 08:00 Blast Cells % 0 % 03/20/16 08:00 Nucleated RBC % Not Reportable 03/20/16 08:00 Seg Neutrophils # 9.9 K/mm3 (1.8-7.7) H 03/17/16 17:05 Seg Neutrophils # Man 17.5 K/mm3 (1.8-7.7) H 03/20/16 08:00 Band Neutrophils # 0.0 K/mm3 03/20/16 08:00 Lymphocytes # (Manual) 1.8 K/mm3 (1.2-5.4) 03/20/16 08:00 Abs React Lymphs (Man) 0.0 K/mm3 03/20/16 08:00 Monocytes # (Manual) 1.0 K/mm3 (0.0-0.8) H 03/20/16 08:00 Eosinophils # (Manual) 0.0 K/mm3 (0.0-0.4) 03/20/16 08:00 Basophils # (Manual) 0.0 K/mm3 (0.0-0.1) 03/20/16 08:00 Metamyelocytes # 0.0 K/mm3 03/20/16 08:00 Myelocytes # 0.0 K/mm3 03/20/16 08:00 Promyelocytes # 0.0 K/mm3 03/20/16 08:00 Blast Cells # 0.0 K/mm3 03/20/16 08:00 WBC Morphology Not Reportable 03/20/16 08:00 Hypersegmented Neuts Not Reportable 03/20/16 08:00 Hyposegmented Neuts Not Reportable 03/20/16 08:00 Hypogranular Neuts Not Reportable 03/20/16 08:00 Smudge Cells Not Reportable 03/20/16 08:00 Toxic Granulation Not Reportable 03/20/16 08:00 Toxic Vacuolation Not Reportable 03/20/16 08:00 Dohle Bodies Not Reportable 03/20/16 08:00 Pelger-Huet Anomaly Not Reportable 03/20/16 08:00 Germania Rods Not Reportable 03/20/16 08:00 Platelet Estimate Appears normal 03/20/16 08:00 Clumped Platelets Not Reportable 03/20/16 08:00 Plt Clumps, EDTA Not Reportable 03/20/16 08:00 Large Platelets Not Reportable 03/20/16 08:00 Giant Platelets Not Reportable 03/20/16 08:00 Platelet Satelliting Not Reportable 03/20/16 08:00 Plt Morphology Comment Not Reportable 03/20/16 08:00 RBC Morphology Not Reportable 03/20/16 08:00 Dimorphic RBCs Not Reportable 03/20/16 08:00 Polychromasia Not Reportable 03/20/16 08:00 Hypochromasia Not Reportable 03/20/16 08:00 Poikilocytosis Not Reportable 03/20/16 08:00 Anisocytosis Few 03/20/16 08:00 Microcytosis Not Reportable 03/20/16 08:00 Macrocytosis Not Reportable 03/20/16 08:00 Spherocytes Not Reportable 03/20/16 08:00 Pappenheimer Bodies Not Reportable 03/20/16 08:00 Sickle Cells Not Reportable 03/20/16 08:00 Target Cells Not Reportable 03/20/16 08:00 Tear Drop Cells Not Reportable 03/20/16 08:00 Ovalocytes Not Reportable 03/20/16 08:00 Helmet Cells Not Reportable 03/20/16 08:00 [place] Bodies Not Reportable 03/20/16 08:00 [place] Rings Not Reportable 03/20/16 08:00 Rory Cells Not Reportable 03/20/16 08:00 Bite Cells Not Reportable 03/20/16 08:00 Crenated Cell Not Reportable 03/20/16 08:00 Elliptocytes Not Reportable 03/20/16 08:00 Acanthocytes (Spur) Not Reportable 03/20/16 08:00 Rouleaux Not Reportable 03/20/16 08:00 Hemoglobin C Crystals Not Reportable 03/20/16 08:00 Schistocytes Not Reportable 03/20/16 08:00 Malaria parasites Not Reportable 03/20/16 08:00 Christian Bodies Not Reportable 03/20/16 08:00 Hem Pathologist Commnt No 03/20/16 08:00 PT 15.7 Sec. (12.2-14.9) H 03/17/16 17:05 INR 1.26 (0.87-1.13) H 03/17/16 17:05 APTT 34.3 Sec. (24.2-36.6) 03/17/16 17:05 POC ABG pH 7.413 (7.35-7.45) 03/18/16 09:10 POC ABG pCO2 27.9 (35-45) L 03/18/16 09:10 POC ABG pO2 94 (80-105) 03/18/16 09:10 POC ABG HCO3 17.8 03/18/16 09:10 POC ABG Total CO2 19 03/18/16 09:10 POC ABG O2 Sat 98 03/18/16 09:10 POC ABG Base Excess -7 03/18/16 09:10 FiO2 21 % 03/18/16 09:10 Sodium 142 mmol/L (137-145) 03/20/16 08:00 Potassium 4.2 mmol/L (3.6-5.0) D 03/21/16 08:54 Chloride 110.2 mmol/L (98-107) H 03/20/16 08:00 Carbon Dioxide 17 mmol/L (22-30) L 03/21/16 08:54 Anion Gap 16 mmol/L 03/20/16 08:00 BUN 9 mg/dL (7-17) 03/21/16 08:54 Creatinine 0.8 mg/dL (0.7-1.2) 03/21/16 08:54 Estimated GFR > 60 ml/min 03/21/16 08:54 BUN/Creatinine Ratio 11.25 % 03/21/16 08:54 Glucose 181 mg/dL (65-100) H 03/21/16 08:54 POC Glucose 145 (70-105) H 03/21/16 16:44 Hemoglobin A1c 5.8 % (4-6) 03/18/16 14:57 Calcium 7.8 mg/dL (8.4-10.2) L 03/21/16 08:54 Phosphorus 2.1 mg/dL (2.5-4.5) L 03/20/16 08:00 Magnesium 2.1 mg/dL (1.7-2.3) 03/21/16 08:54 Total Bilirubin 0.5 mg/dL (0.1-1.2) 03/19/16 07:45 AST 8 units/L (5-40) 03/19/16 07:45 ALT < 5 units/L (7-56) L 03/19/16 07:45 Alkaline Phosphatase 75 units/L (35-129) 03/19/16 07:45 NT-Pro-B Natriuret Pep 642.1 pg/mL (0-900) 03/18/16 10:22 Total Protein 5.9 g/dL (6.3-8.2) L 03/19/16 07:45 Albumin 2.0 g/dL (3.9-5) L 03/19/16 07:45 Albumin/Globulin Ratio 0.5 % 03/19/16 07:45 Lipase 6 units/L (13-60) L 03/17/16 17:05 Urine Color Yellow (Yellow) 03/18/16 Unknown Urine Turbidity Cloudy (Clear) 03/18/16 Unknown Urine pH 6.0 (5.0-7.0) 03/18/16 Unknown Ur Specific [place] 1.005 (1.003-1.030) 03/18/16 Unknown Urine Protein 30 mg/dl mg/dL (Negative) 03/18/16 Unknown Urine Glucose (UA) Negative mg/dL (Negative) 03/18/16 Unknown Urine Ketones Negative mg/dL (Negative) 03/18/16 Unknown Urine Blood Moderate (Negative) 03/18/16 Unknown Urine Nitrite Positive (Negative) 03/18/16 Unknown Urine Bilirubin Negative (Negative) 03/18/16 Unknown Urine Urobilinogen < 2.0 mg/dL (<2.0) 03/18/16 Unknown Ur Leukocyte Esterase Negative (Negative) 03/18/16 Unknown Urine WBC (Auto) 7.0 /HPF (0.0-6.0) H 03/18/16 Unknown Urine RBC (Auto) 2.0 /HPF (0.0-6.0) 03/18/16 Unknown U Epithel Cells (Auto) 7.0 /HPF (0-13.0) 03/18/16 Unknown Urine Bacteria (Auto) 4+ /HPF (Negative) 03/18/16 Unknown Ketones 3.8 mg/dL (0.2-2.8) H 03/18/16 10:22 Blood Type A POSITIVE 03/17/16 17:05 Antibody Screen Negative 03/17/16 17:05
[2016-03-21] MEDS: REMERON PO SCH (22:55)
[2016-03-21] MEDS: ZOCOR PO SCH (22:55)
[2016-03-22] MEDS: D5NS 1,000 ML IV SCH ×2 (05:47→22:42)
[2016-03-22] MEDS: ZOSYN/NS 4.5GM/100ML 100 ML IV SCH (05:48)
[2016-03-22] MEDS: FLAGYL PO SCH (06:33)
--- NOTE | 2016-03-22 08:22 | Consultation ---
History of Present Illness Consult date: 03/22/16 Reason for consult: other (lung abcess) - History of present illness History of present illness: 70 year old female with hx of NSCLC right lower lobe followed by Dr. Coy, Stage IV dz., complex case, developed intra abd abcess, had TABH, abcess and developed C Diff colitis, intractable diarhea, N and V, admitted, now found to have high grade Int carotid stenosis. Past History Past Medical History: CAD, COPD, other (lung cancer) Past Surgical History: hysterectomy, Other (pelvic abcess) Social history: smoking Medications and Allergies Allergies Allergy/AdvReac Type Severity Reaction Status Date / Time No Known Allergies Allergy Verified 05/16/14 09:12 Home Medications Medication Instructions Recorded Confirmed Last Taken Type Multivitamin [Multi-Vitamin Daily] 1 tab PO DAILY 05/16/14 02/24/16 1 Week Ago History Acetaminophen [Acetaminophen TAB] 650 mg PO Q6H PRN #1 tablet 02/13/16 02/24/16 Unknown Rx Antacid [Alum-Mag Hydrox-Simeth 30 ml PO Q4H PRN #1 oral.liqd 02/13/16 02/24/16 Unknown Rx [id number]] Carvedilol [Coreg] 12.5 mg PO DAILY #30 tablet 02/13/16 02/24/16 Unknown Rx Cholestyramine (with Sugar) 4 gm PO QDAY #30 packet 02/13/16 02/24/16 Unknown Rx [Questran] Lactobacillus Acidophil [Floranex] 1 each PO BID #60 packet 02/13/16 02/24/16 Unknown Rx Megestrol [Megace] 400 mg PO QDAY 30 Days 02/13/16 02/24/16 Unknown Rx Mirtazapine [Remeron] 15 mg PO QHS #30 tablet 02/13/16 02/24/16 Unknown Rx Simvastatin [Zocor TAB] 5 mg PO DAILY #30 tablet 02/13/16 02/24/16 Unknown Rx Triamter/Hctz 37.5-25 mg 1 tab PO DAILY #30 tablet 02/13/16 02/24/16 Unknown Rx [Maxzide-25] metroNIDAZOLE [Flagyl] 500 mg PO Q8HR #30 tablet 02/27/16 Unknown Rx Oxycodone HCl/Acetaminophen 1 each PO Q6HR PRN #15 tablet 03/18/16 Unknown Rx [Percocet 7.5/325 mg] Active Meds: Active Medications Acetaminophen (Tylenol) 650 mg PO Q6H PRN PRN Reason: Pain, Mild (1-3) Al Hydrox/Mg Hydrox/Simethicone (Alum-Mag Hydrox-Simeth [id number]/5ml) 30 ml PO Q4H PRN PRN Reason: Indigestion Bisacodyl (Dulcolax) 10 mg DE QDAY PRN PRN Reason: Constipation unrelieved by MOM Carvedilol (Coreg) 12.5 mg PO DAILY [facility] Last Admin: 03/21/16 09:00 Dose: 12.5 mg Enoxaparin Sodium (Lovenox) 40 mg SUB-Q QDAY [facility] Last Admin: 03/21/16 09:00 Dose: 40 mg Hydromorphone HCl (Dilaudid) 1 mg IV Q3H PRN PRN Reason: Pain , Severe (7-10) Dextrose/Sodium Chloride (D5ns) 1,000 mls @ 75 mls/hr IV DIRECT [facility] Last Admin: 03/22/16 05:47 Dose: 75 mls/hr Piperacillin Sod/Tazobactam Sod (Zosyn/Ns 4.5gm/100ml) 100 mls @ 200 mls/hr IV Q8HR [facility] PRN Reason: Protocol Last Admin: 03/22/16 05:48 Dose: 200 mls/hr Insulin Aspart (Novolog) 0 units SUB-Q ACHS [facility] PRN Reason: Protocol Last Admin: 03/21/16 23:11 Dose: 2 units Magnesium Hydroxide (Milk Of Magnesia) 30 ml PO Q4H PRN PRN Reason: Constipation Megestrol Acetate (Megace) 400 mg PO QDAY [facility] Last Admin: 03/21/16 09:01 Dose: 400 mg Metronidazole (Flagyl) 500 mg PO Q8HR [facility] Last Admin: 03/22/16 06:33 Dose: 500 mg Mirtazapine (Remeron) 15 mg PO QHS [facility] Last Admin: 03/21/16 22:55 Dose: 15 mg Ondansetron HCl (Zofran) 4 mg IV Q3H PRN PRN Reason: N/V unrelieved by Reglan Oxycodone/Acetaminophen (Percocet 5/325) 1 tab PO Q6H PRN PRN Reason: Pain, Moderate (4-6) Last Admin: 03/18/16 22:37 Dose: 1 tab Simvastatin (Zocor) 5 mg PO QHS [facility] Last Admin: 03/21/16 22:55 Dose: 5 mg Triamterene/HCTZ (Maxzide-25) 1 each PO DAILY [facility] Last Admin: 03/21/16 09:00 Dose: 1 each Review of Systems - Constitutional anorexia, fatigue, weakness, other (diarhea) Exam Vital Signs Temp Pulse Resp BP Pulse Ox 97.3 F L 88 18 118/87 100 03/17/16 16:22 03/17/16 16:22 03/17/16 16:22 03/17/16 16:22 03/17/16 16:22 - General physical appearance Positive: no distress, chronically ill, other (cachectic) - Eyes Positive: PERRL, normal occular movement - ENT Positive: normal pinna, normal nares, normal mucosa, no hearing loss, no congestion - Respiratory Positive: other (decreased bs right base) - Cardiovascular Rhythm: regular Heart Sounds: Present: S1 & S2. Absent: rub, click - Extremities Extremities: no ischemia Peripheral Pulses: within normal limits - Breasts Breasts: deferred - Abdomen Abdomen: Present: soft, bowel sounds normal, surgical scars Hernia: none - Neurologic Neurologic: alert and oriented to time, place and person, motor strength and sensation are grossly intact - Psychiatric Psychiatric: appropriate mood/affect, intact judgment & insight Results - Labs 03/20/16 08:00 03/21/16 08:54 Abnormal lab results 03/21/16 03/21/16 03/21/16 Range/Units 08:54 12:09 16:44 Carbon Dioxide 17 L (22-30) mmol/L Glucose 181 H (65-100) mg/dL POC Glucose 222 H 145 H (70-105) Calcium 7.8 L (8.4-10.2) mg/dL 03/21/16 03/22/16 Range/Units 22:14 05:24 Carbon Dioxide (22-30) mmol/L Glucose (65-100) mg/dL POC Glucose 199 H 174 H (70-105) Calcium (8.4-10.2) mg/dL Diabetes panel 03/21/16 Range/Units 08:54 Potassium 4.2 D (3.6-5.0) mmol/L Carbon Dioxide 17 L (22-30) mmol/L BUN 9 (7-17) mg/dL Creatinine 0.8 (0.7-1.2) mg/dL Glucose 181 H (65-100) mg/dL Calcium 7.8 L (8.4-10.2) mg/dL Calcium panel 03/21/16 Range/Units 08:54 Calcium 7.8 L (8.4-10.2) mg/dL Pituitary panel 03/21/16 Range/Units 08:54 Potassium 4.2 D (3.6-5.0) mmol/L Carbon Dioxide 17 L (22-30) mmol/L BUN 9 (7-17) mg/dL Creatinine 0.8 (0.7-1.2) mg/dL Glucose 181 H (65-100) mg/dL Calcium 7.8 L (8.4-10.2) mg/dL Adrenal panel 03/21/16 Range/Units 08:54 Potassium 4.2 D (3.6-5.0) mmol/L Carbon Dioxide 17 L (22-30) mmol/L BUN 9 (7-17) mg/dL Creatinine 0.8 (0.7-1.2) mg/dL Glucose 181 H (65-100) mg/dL Calcium 7.8 L (8.4-10.2) mg/dL Assessment and Plan Complex case, stage IV lung cancer (liver mets), hx TABH complicated by pelvic abcess, C diff colitis,high grade carotid stenosis,lung abcess in right lower lobe. There is little I can offer from Thoracic standpoint, other than CT directed percutaneous pig tail catheter, rodent exterminator prognosis guarded, chemo on hold because of all of the complication in abdomen,etc. Consider evaluation by Hospice at some point, apparently vascular evaluation and treatment planned today according to patient.
--- NOTE | 2016-03-22 08:26 | Consultation ---
History of Present Illness - Reason for Consult Consult date: 03/22/16 abscess - History of Present Illness This is a 70 year old woman with diabetes mellitus and hypertension. Diagnosed with metastatic lung cancer, started on chemotherapy in January. She said she completed 3 weeks of chemotherapy, while on chemotherapy she developed watery diarrhea that was found to be Cdiff. The chemotherapy was stopped secondary to the chemotherapy. She has been on treatment for the cdiff, she does not recall the medication. Patient did not have the correct chronology of events. Based on a note written in January patient was diagnosed with stage IV lung cancer around october of 2015, she started chemotherapy in October of 2015. Chemotherapy was discontinued in December due to weakness and diarrhea. She had severe abdominal pain with watery diarrhea leading to her admission to the hospital in January,. A Ct scan of the abdomen on 01/16/16 revealed multiple subtle hyperenhancement/lesions within the liver, small foci of upper anterior abdominal air, numerous other extraluminal foci of air noted in the right hemiabdomen mesentery and along the paracolic gutter, cecum/ascending colon thick walled, abnormal air-fluid collection in the right lower quadrant measures 8x5.7cm, and myomatous uterus. Patient was taken to the OR on 01/17/16 underwent exploratory laparotomy with appendectomy, hysterectomy for pelvic and uterine abscess. She was treated with zosyn followed by meropenem completing antibiotics on 01/28/16. Stool cdiff done on 01/14/16 did come back positive for cdiff. She received po vancomycin that was planned to be continued for at least 7-10 days after completing systemic antibiotics. Patient presented on 03/17/16 with diarrhea and weakness. She gave the same story as her presentation in January. She said her chemotherapy was stopped secondary to diarrhea and she has been on po medication for cdiff. CT scan done 03/19/16 with metastatic disease in liver, new large cavity containing predominantly air and small amount of fluid or dbris in the mid pelvis. CT scan of chest with a large lower lobe lung cancer with slight increase in size with new central cavitation and fluid. MRA of the head revealed high grade focal stenosis in the high cervical portion of the left internal carotid artery. Admission wbc was 14.5, now it is 20.3. She has been afebrile. She was started on oral metronidazole and zosyn. Infectious disease consult was called to evaluate. Past History Past Medical History: CAD, COPD, other (lung cancer) Past Surgical History: hysterectomy, Other (pelvic abcess) Social history: smoking Medications and Allergies Allergies Allergy/AdvReac Type Severity Reaction Status Date / Time No Known Allergies Allergy Verified 05/16/14 09:12 Home Medications Medication Instructions Recorded Confirmed Last Taken Type Multivitamin [Multi-Vitamin Daily] 1 tab PO DAILY 05/16/14 02/24/16 1 Week Ago History Acetaminophen [Acetaminophen TAB] 650 mg PO Q6H PRN #1 tablet 02/13/16 02/24/16 Unknown Rx Antacid [Alum-Mag Hydrox-Simeth 30 ml PO Q4H PRN #1 oral.liqd 02/13/16 02/24/16 Unknown Rx [id number]/5Ml] Carvedilol [Coreg] 12.5 mg PO DAILY #30 tablet 02/13/16 02/24/16 Unknown Rx Cholestyramine (with Sugar) 4 gm PO QDAY #30 packet 02/13/16 02/24/16 Unknown Rx [Questran] Lactobacillus Acidophil [Floranex] 1 each PO BID #60 packet 02/13/16 02/24/16 Unknown Rx Megestrol [Megace] 400 mg PO QDAY 30 Days 02/13/16 02/24/16 Unknown Rx Mirtazapine [Remeron] 15 mg PO QHS #30 tablet 02/13/16 02/24/16 Unknown Rx Simvastatin [Zocor TAB] 5 mg PO DAILY #30 tablet 02/13/16 02/24/16 Unknown Rx Triamter/Hctz 37.5-25 mg 1 tab PO DAILY #30 tablet 02/13/16 02/24/16 Unknown Rx [Maxzide-25] metroNIDAZOLE [Flagyl] 500 mg PO Q8HR #30 tablet 02/27/16 Unknown Rx Oxycodone HCl/Acetaminophen 1 each PO Q6HR PRN #15 tablet 03/18/16 Unknown Rx [Percocet 7.5/325 mg] Active Meds: Active Medications Acetaminophen (Tylenol) 650 mg PO Q6H PRN PRN Reason: Pain, Mild (1-3) Al Hydrox/Mg Hydrox/Simethicone (Alum-Mag Hydrox-Simeth [phone]/5ml) 30 ml PO Q4H PRN PRN Reason: Indigestion Bisacodyl (Dulcolax) 10 mg LA QDAY PRN PRN Reason: Constipation unrelieved by MOM Carvedilol (Coreg) 12.5 mg PO DAILY [facility] Last Admin: 03/21/16 09:00 Dose: 12.5 mg Enoxaparin Sodium (Lovenox) 40 mg SUB-Q QDAY [facility] Last Admin: 03/21/16 09:00 Dose: 40 mg Hydromorphone HCl (Dilaudid) 1 mg IV Q3H PRN PRN Reason: Pain , Severe (7-10) Dextrose/Sodium Chloride (D5ns) 1,000 mls @ 75 mls/hr IV DIRECT [facility] Last Admin: 03/22/16 05:47 Dose: 75 mls/hr Piperacillin Sod/Tazobactam Sod (Zosyn/Ns 4.5gm/100ml) 100 mls @ 200 mls/hr IV Q8HR [facility] PRN Reason: Protocol Last Admin: 03/22/16 05:48 Dose: 200 mls/hr Insulin Aspart (Novolog) 0 units SUB-Q ACHS [facility] PRN Reason: Protocol Last Admin: 03/21/16 23:11 Dose: 2 units Magnesium Hydroxide (Milk Of Magnesia) 30 ml PO Q4H PRN PRN Reason: Constipation Megestrol Acetate (Megace) 400 mg PO QDAY [facility] Last Admin: 03/21/16 09:01 Dose: 400 mg Metronidazole (Flagyl) 500 mg PO Q8HR [facility] Last Admin: 03/22/16 06:33 Dose: 500 mg Mirtazapine (Remeron) 15 mg PO QHS [facility] Last Admin: 03/21/16 22:55 Dose: 15 mg Ondansetron HCl (Zofran) 4 mg IV Q3H PRN PRN Reason: N/V unrelieved by Reglan Oxycodone/Acetaminophen (Percocet 5/325) 1 tab PO Q6H PRN PRN Reason: Pain, Moderate (4-6) Last Admin: 03/18/16 22:37 Dose: 1 tab Simvastatin (Zocor) 5 mg PO QHS [facility] Last Admin: 03/21/16 22:55 Dose: 5 mg Triamterene/HCTZ (Maxzide-25) 1 each PO DAILY [facility] Last Admin: 03/21/16 09:00 Dose: 1 each Review of Systems Constitutional: fatigue, weakness, no fever, no chills, no sweats Ears, nose, mouth and throat: no ear pain, no ear discharge, no tinnitis, no dental pain Breasts: deferred Cardiovascular: no chest pain, no orthopnea, no palpitations, no shortness of breath Respiratory: no cough, no cough with sputum, no wheezing Gastrointestinal: abdominal pain, diarrhea, no nausea, no vomiting Genitourinary Female: no pelvic pain Menstruation: post hysterectomy Rectal: no pain, no itching Musculoskeletal: no neck stiffness, no neck pain, no shooting arm pain Integumentary: no rash, no pruritis, no redness, no lesions Neurological: no head injury, no numbness, no tingling, no syncope, no convulsions Psychiatric: no change in sleep habits, no sleep disturbances, no hallucinations Physical Examination - Constitutional Vitals: Selected Entries 03/21/16 03/21/16 03/22/16 16:13 20:00 00:00 Temperature 98.4 F 97.8 F 97.0 F L Pulse Rate [ 84 Right Radial] Respiratory 20 Rate O2 Sat by Pulse 98 Oximetry Blood Pressure 130/79 [Right Arm] Blood Pressure 96 Mean [Right Arm ] General appearance: Present: no acute distress, well-nourished - EENT Eyes: Present: PERRL, EOM intact. Absent: scleral icterus, conjunctival injection ENT: hearing intact, poor dentition, edentulous (upper) - Neck Neck: Present: supple, normal ROM. Absent: enlarged thyroid, masses or JVD - Respiratory Respiratory effort: normal Respiratory: bilateral: CTA - Cardiovascular Rhythm: regular Heart Sounds: Present: S1 & S2 - Extremities Extremities: no ischemia, No edema, Full ROM - Abdominal General gastrointestinal: Present: soft, non-tender, normal bowel sounds Female genitourinary: Present: deferred - Rectal Rectal Exam: deferred - Integumentary Integumentary: Present: clear, warm, dry. Absent: jaundice, rash - Musculoskeletal Musculoskeletal: strength equal bilaterally - Psychiatric Psychiatric: cooperative, depressed Results - Labs CBC & Chem 7: 03/20/16 08:00 03/21/16 08:54 Labs: Microbiology 03/21/16 13:45 Urine,Clean Catch Urine Culture - Preliminary NO GROWTH AFTER 24 HOURS Laboratory Tests 03/18/16 03/18/16 03/20/16 10:22 Unknown 08:00 WBC 20.3 H Plt Count 184 Creatinine Estimated GFR Glucose Urine WBC (Auto) 7.0 H Urine RBC (Auto) 2.0 Ketones 3.8 H 03/21/16 08:54 WBC Plt Count Creatinine 0.8 Estimated GFR > 60 Glucose 181 H Urine WBC (Auto) Urine RBC (Auto) Ketones Assessment and Plan Antibiotics: 1) zosyn 4.5 gm iv Q8H (03/20 2) Metronidazole 500mg iv Q8H (03/18 This is a 70 year old woman with metastatic lung cancer, diabetes mellitus and hypertension. Patient had a complicated course after chemotherapy with the development of pelvic abscess leading to hysterectomy on 01/17/16 and Cdiff colitis. She completed treatment for the abscess with zosyn followed by meropenem in January. Patient presented on 03/17/16 with weakness and diarrhea found to have a mid pelvis cavity containing air and a small amount of fluid suspicious of an abscess in addition CT scan revealed that the right lower lobe lung cancer is now cavitating with the presence of fluid. The concern is now raised for possible lung abscess. 1) Pelvic abscess in a patient who underwent hysterectomy on 03/18/15 for pelvic abscess. Now with a new large cavity with air and fluid in the mid pelvis area. Intra-operative culture done on 01/17/16 revealed E.faecalis, E.coli and Enterobacter cloacae. The Enterobacter was intermediate to zosyn 2) Cavitating right lower lung cancer with the presence of air and small amount of fluid. The concern is raised for a lung abscess. It is also possible that this is all malignancy and not an infectious process. Would need to have culture of this to be able to treat if it is an infectious process. One juanito have to thing about anaerobes as well. Patient is without pulmonary symptoms. 3) leukocytosis in a patient with metastatic lung cancer to liver and recent treatment for cdiff. The elevated wbc could be related to the malignancy vs cdiff vs pelvic abscess. 4. left internal carotid artery stenosis Plan: 1) discontinue po flagyl 2) start vancomycin 125 mg po Q6H 3) discontinue zosyn in view of previous culture from the pelvic abscess having an Enterobacter that was intermediate in sensitivity. 4) start meropenem 1gm iv Q8H 5) obtain stool cdiff 6) will need evacuation of pelvic abscess
[2016-03-22] MEDS ORDERED: SUBLIMAZE IV ONE (08:50)
[2016-03-22] MEDS ORDERED: VERSED IV ONE ×2 (08:50→08:55)
[2016-03-22] MEDS ORDERED: SUBLIMAZE ONE (08:55)
--- NOTE | 2016-03-22 09:15 | Hem/Onc Progress Note ---
Assessment and Plan Scan shows metastatic disease. Also evidence of pelvic abscess. For drainage today. We will follow-up. Check CBC in the morning. Subjective Date of service: 03/22/16 Interval history: Patient for possible drainage of the pelvic abscess today. Objective - Constitutional Vitals: Last Vital Signs Temp 97.0 F L 03/22/16 00:00 Pulse 84 03/22/16 00:00 Resp 20 03/22/16 00:00 BP 130/79 03/22/16 00:00 Pulse Ox 98 03/22/16 00:00 Pain Intensity (0-10): denies any pain General appearance: mild distress Performance status: 3-limited selfcare - Neck Neck: supple - Respiratory Respiratory effort: Positive: normal Respiratory: bilateral: diminished - Cardiovascular Rhythm: regular - Gastrointestinal General gastrointestinal: Present: soft - Labs Lab Results: Laboratory Results - last 24 hr 03/21/16 03/21/16 03/21/16 08:54 12:09 16:44 Potassium 4.2 D Carbon Dioxide 17 L BUN 9 Creatinine 0.8 Estimated GFR > 60 BUN/Creatinine Ratio 11.25 Glucose 181 H POC Glucose 222 H 145 H Calcium 7.8 L Magnesium 2.1 03/21/16 03/22/16 22:14 05:24 Potassium Carbon Dioxide BUN Creatinine Estimated GFR BUN/Creatinine Ratio Glucose POC Glucose 199 H 174 H Calcium Magnesium
[2016-03-22] MEDS: NOVOLOG SUB-Q SCH ×4 (09:30→22:44)
--- NOTE | 2016-03-22 10:35 | Event Note ---
Date: 03/22/16 The patient was brought down to the CT suite and placed in supine position on the CT gantry. A Cade catheter was placed prior to the patient being brought down to decompress the bladder. Initial marketing ambassador images of the abdomen were performed. This demonstrates that there has been interval resorbtion of nearly all the pelvic free air in the region of the hysterectomy site. No significant fluid collection is identified. Scattered loops of bowel are present in the pelvis. At this point in time, there is no target for percutaneous drainage as the is no significant amount of fluid or free air. Will discuss with the patient's interactive designer definitive treatment.
--- NOTE | 2016-03-22 11:14 | Progress Note ---
Assessment and Plan 70 y/o female with stage IV lung CA now with what appears to be an abscess that has formed within the lung mass. 1. Reviewed prior imaging from before. Abscess/air fluid level does appear to be new. Patient not having in change in breathing patterns, no hemoptysis, no cough, no productive sputum. From a lung standpoint/interventional standpoint, nothing to be done. Bronchoscopy is not indicated. At this time will sign off. Already on abx therapy for other reasons. Call if you have any other questions or concerns, or if clinically, patient worsens. Subjective Date of service: 03/22/16 Interval history: No acute events. Patient on room air. Breathing is even and unlabored. Remainder is negative from a lung standpoint. Objective Vital Signs - 12hr 03/22/16 03/22/16 03/22/16 00:00 08:40 10:04 Temperature 97.0 F L 98.2 F Pulse Rate [ 84 82 Right Radial] Respiratory 20 20 Rate Blood Pressure 130/79 135/77 [Right Arm] O2 Sat by Pulse 98 100 99 Oximetry Constitutional: no acute distress, alert Eyes: non-icteric ENT: oropharynx moist Neck: supple Effort: normal Ascultation: Bilateral: clear, diminished breath sounds Percussion: Bilateral: not dull Tactile fremitus: Bilateral: normal Cardiovascular: regular rate and rhythm Gastrointestinal: normoactive bowel sounds, non-distended Integumentary: normal Extremities: no cyanosis, no edema Neurologic: normal mental status, non-focal exam, CN II-XII normal Psychiatric: mood appropriate CBC and BMP: 03/20/16 08:00 03/21/16 08:54 ABG, PT/INR, D-dimer: ABG POC ABG pH 7.413 (7.35-7.45) 03/18/16 09:10 POC ABG pCO2 27.9 (35-45) L 03/18/16 09:10 POC ABG pO2 94 (80-105) 03/18/16 09:10 POC ABG HCO3 17.8 03/18/16 09:10 POC ABG Total CO2 19 03/18/16 09:10 POC ABG O2 Sat 98 03/18/16 09:10 PT/INR, D-dimer PT 15.7 Sec. (12.2-14.9) H 03/17/16 17:05 INR 1.26 (0.87-1.13) H 03/17/16 17:05 Abnormal lab findings: Abnormal Labs 03/18/16 03/19/16 03/19/16 Unknown 06:02 07:45 WBC 20.9 H RBC Hgb Hct MCH 27 L RDW 16.6 H Seg Neuts % (Manual) 87.0 H Lymphocytes % (Manual) 10.0 L Seg Neutrophils # Man 18.2 H Monocytes # (Manual) Potassium Chloride Carbon Dioxide BUN Glucose POC Glucose 137 H Calcium Phosphorus Magnesium ALT Total Protein Albumin Urine WBC (Auto) 7.0 H 03/19/16 03/19/16 03/19/16 07:45 11:34 16:47 WBC RBC Hgb Hct MCH RDW Seg Neuts % (Manual) Lymphocytes % (Manual) Seg Neutrophils # Man Monocytes # (Manual) Potassium Chloride 114.8 H Carbon Dioxide 20 L BUN 19 H Glucose 121 H POC Glucose 211 H 142 H Calcium Phosphorus Magnesium ALT < 5 L Total Protein 5.9 L Albumin 2.0 L Urine WBC (Auto) 03/19/16 03/20/16 03/20/16 22:08 06:52 08:00 WBC 20.3 H RBC 3.63 L Hgb 9.7 L Hct 30.1 L MCH 27 L RDW 16.6 H Seg Neuts % (Manual) 86.0 H Lymphocytes % (Manual) 9.0 L Seg Neutrophils # Man 17.5 H Monocytes # (Manual) 1.0 H Potassium Chloride Carbon Dioxide BUN Glucose POC Glucose 224 H 181 H Calcium Phosphorus Magnesium ALT Total Protein Albumin Urine WBC (Auto) 03/20/16 03/20/16 03/20/16 08:00 12:55 16:38 WBC RBC Hgb Hct MCH RDW Seg Neuts % (Manual) Lymphocytes % (Manual) Seg Neutrophils # Man Monocytes # (Manual) Potassium 3.2 L D Chloride 110.2 H Carbon Dioxide 19 L BUN Glucose 169 H POC Glucose 127 H 270 H Calcium 8.2 L Phosphorus 2.1 L Magnesium 1.5 L ALT Total Protein Albumin Urine WBC (Auto) 03/20/16 03/21/16 03/21/16 21:39 05:44 08:54 WBC RBC Hgb Hct MCH RDW Seg Neuts % (Manual) Lymphocytes % (Manual) Seg Neutrophils # Man Monocytes # (Manual) Potassium Chloride Carbon Dioxide 17 L BUN Glucose 181 H POC Glucose 144 H 189 H Calcium 7.8 L Phosphorus Magnesium ALT Total Protein Albumin Urine WBC (Auto) 03/21/16 03/21/16 03/21/16 12:09 16:44 22:14 WBC RBC Hgb Hct MCH RDW Seg Neuts % (Manual) Lymphocytes % (Manual) Seg Neutrophils # Man Monocytes # (Manual) Potassium Chloride Carbon Dioxide BUN Glucose POC Glucose 222 H 145 H 199 H Calcium Phosphorus Magnesium ALT Total Protein Albumin Urine WBC (Auto) 03/22/16 05:24 WBC RBC Hgb Hct MCH RDW Seg Neuts % (Manual) Lymphocytes % (Manual) Seg Neutrophils # Man Monocytes # (Manual) Potassium Chloride Carbon Dioxide BUN Glucose POC Glucose 174 H Calcium Phosphorus Magnesium ALT Total Protein Albumin Urine WBC (Auto)
[2016-03-22] MEDS: LOVENOX SUB-Q SCH (11:54)
[2016-03-22] MEDS: MEGACE PO SCH (11:55)
[2016-03-22] MEDS: MAXZIDE-25 PO SCH (11:55)
[2016-03-22] MEDS: COREG PO SCH (11:56)
[2016-03-22] MEDS ORDERED: MERREM/NS 500 MG/50 ML 50 ML IV SCH (12:00)
--- NOTE | 2016-03-22 12:54 | Cat Scan Report ---
EXAM: CT OF THE PELVIS WITHOUT CONTRAST CLINICAL INDICATION: PELVIC ABSCESS DATE: 03/22/2016 FINDINGS: The patient was brought to the CT suite and placed in supine position on the examination table. A Cade catheter was placed in the patient prior to the patient's arrival to decompress her bladder. Images of the pelvis were obtained in anticipation of percutaneous placement of a drainage catheter. There is stable appearance of patient's left renal cysts. Bowel is grossly unchanged from prior examination. Post surgical changes are present along the anterior abdominal wall in the region of the umbilicus. There's been decompression of patient's bladder with free air within the bladder secondary to recent Cade catheter placement. Previously described area within the pelvis and posterior cul-de-sac or has decreased air and phlegmonous changes but no drainable abscess is identified. IMPRESSION: Non contrasted CT scan of pelvis following placement of a Cade catheter which shows punctate areas of free air within the pelvis and phlegmonous changes in the region of the hysterectomy bed however, no drainable fluid collection is identified.
--- NOTE | 2016-03-22 13:59 | Progress Note ---
Assessment and Plan Pt feeling well without compl. yarelis reg diet Abd soft, non tender discussed with Dr. Perez. Pt was taken down today for attempted drainage but are much improved. Down from 5 x 5cm to approx 2.5 cm spontaneously draining thru vaginal cuff? Pt states does have some vaginal drainage. surgically stable continue close observation. f/u CT in near future as per IR antibiotics as per ID Objective Vital Signs - 12hr 03/22/16 03/22/16 03/22/16 08:40 10:04 11:56 Temperature 98.2 F Pulse Rate 85 Pulse Rate [ Left Radial] Pulse Rate [ 82 Right Radial] Respiratory 20 Rate Blood Pressure 136/73 Blood Pressure 135/77 [Right Arm] O2 Sat by Pulse 100 99 Oximetry 03/22/16 13:02 Temperature Pulse Rate Pulse Rate [ 64 Left Radial] Pulse Rate [ Right Radial] Respiratory 14 Rate Blood Pressure Blood Pressure [Right Arm] O2 Sat by Pulse Oximetry - Labs 03/20/16 08:00 03/21/16 08:54
[2016-03-22] MEDS: VANCOMYCIN PO SCH ×2 (15:02→19:13)
[2016-03-22] MEDS: MERREM 1,000 MG in NACL 0.9% 100 ML IV SCH ×2 (15:03→22:43)
--- NOTE | 2016-03-22 21:05 | Progress Note ---
Assessment and Plan Assessment and plan: Patient went for CT-guided aspiration of pelvic abscess however upon evaluation No fluid collection was noted probably secondary to interval resorption --Pelvic abscess; Significantly improved no fluid to aspirate Continue antibiotics recommended by ID vancomycin and meropenem Follow culture --Right lung abscess on CT ,history of of metastatic lung cancer Cardiothoracic surgical evaluation noted and appreciated, continue IV antibiotics Vanco and meropenem per ID Pulmonary evaluation noted and appreciated --Metastatic lung cancer, oncology following, --History of C. difficile colitis, stool for C. difficile, DC Flagyl --Type 2 diabetes mellitus, hemoglobin A1c less than 6, Accu-Chek sliding scale coverage and ADA diet --Hypertension well-controlled, continue current antihypertensives --Dyslipidemia stable on lipid-lowering medications --Full CODE STATUS --DVT prophylaxis with Lovenox Discussed the plan of care for the patient as well as the nurse Continue current management ,plan of care discussed with the patient as well as the nurse Recommend hospice Consults and recommendations noted and appreciated, History Interval history: Patient seen and evaluated medical records reviewed Scheduled for CT-guided pelvic abscess draining Patient went for CT-guided aspiration of pelvic abscess however upon evaluation No fluid collection was noted probably improved with treatment Patient feels better no new complaints vital signs reviewed Hospitalist Physical - Constitutional Vitals: Temp Pulse Resp BP Pulse Ox 99.1 F 86 20 130/70 99 03/22/16 17:41 03/22/16 17:41 03/22/16 17:41 03/22/16 17:41 03/22/16 10:04 General appearance: Present: no acute distress, cachectic, disheveled - EENT Eyes: Present: PERRL, EOM intact - Neck Neck: Present: supple, normal ROM - Respiratory Respiratory effort: normal Respiratory: bilateral: diminished (right more than left), rhonchi, negative: wheezing - Cardiovascular Rhythm: regular Heart Sounds: Present: S1 & S2 - Extremities Extremities: no ischemia, pulses intact, pulses symmetrical Peripheral Pulses: within normal limits - Abdominal General gastrointestinal: soft, non-tender, non-distended, normal bowel sounds - Integumentary Integumentary: Present: clear, warm - Psychiatric Psychiatric: appropriate mood/affect, cooperative - Neurologic Neurologic: CNII-XII intact, moves all extremities Results - Labs CBC & Chem 7: 03/20/16 08:00 03/21/16 08:54 Labs: Laboratory Last Values WBC 20.3 K/mm3 (4.5-11.0) H 03/20/16 08:00 RBC 3.63 M/mm3 (3.65-5.03) L 03/20/16 08:00 Hgb 9.7 gm/dl (10.1-14.3) L 03/20/16 08:00 Hct 30.1 % (30.3-42.9) L 03/20/16 08:00 MCV 83 fl (79-97) 03/20/16 08:00 MCH 27 pg (28-32) L 03/20/16 08:00 MCHC 32 % (30-34) 03/20/16 08:00 RDW 16.6 % (13.2-15.2) H 03/20/16 08:00 Plt Count 184 K/mm3 (140-440) 03/20/16 08:00 Lymph % (Auto) 22.1 % (13.4-35.0) 03/17/16 17:05 [place] % (Auto) 8.8 % (0.0-7.3) H 03/17/16 17:05 Eos % (Auto) 0.3 % (0.0-4.3) 03/17/16 17:05 Baso % (Auto) 0.2 % (0.0-1.8) 03/17/16 17:05 Lymph # 3.2 K/mm3 (1.2-5.4) 03/17/16 17:05 [place] # 1.3 K/mm3 (0.0-0.8) H 03/17/16 17:05 Eos # 0.0 K/mm3 (0.0-0.4) 03/17/16 17:05 Baso # 0.0 K/mm3 (0.0-0.1) 03/17/16 17:05 Add Manual Diff Complete 03/20/16 08:00 Total Counted 100 03/20/16 08:00 Seg Neutrophils % 68.6 % (40.0-70.0) 03/17/16 17:05 Seg Neuts % (Manual) 86.0 % (40.0-70.0) H 03/20/16 08:00 Band Neutrophils % 0 % 03/20/16 08:00 Lymphocytes % (Manual) 9.0 % (13.4-35.0) L 03/20/16 08:00 Reactive Lymphs % (Man) 0 % 03/20/16 08:00 Monocytes % (Manual) 5.0 % (0.0-7.3) 03/20/16 08:00 Eosinophils % (Manual) 0 % (0.0-4.3) 03/20/16 08:00 Basophils % (Manual) 0 % (0.0-1.8) 03/20/16 08:00 Metamyelocytes % 0 % 03/20/16 08:00 Myelocytes % 0 % 03/20/16 08:00 Promyelocytes % 0 % 03/20/16 08:00 Blast Cells % 0 % 03/20/16 08:00 Nucleated RBC % Not Reportable 03/20/16 08:00 Seg Neutrophils # 9.9 K/mm3 (1.8-7.7) H 03/17/16 17:05 Seg Neutrophils # Man 17.5 K/mm3 (1.8-7.7) H 03/20/16 08:00 Band Neutrophils # 0.0 K/mm3 03/20/16 08:00 Lymphocytes # (Manual) 1.8 K/mm3 (1.2-5.4) 03/20/16 08:00 Abs React Lymphs (Man) 0.0 K/mm3 03/20/16 08:00 Monocytes # (Manual) 1.0 K/mm3 (0.0-0.8) H 03/20/16 08:00 Eosinophils # (Manual) 0.0 K/mm3 (0.0-0.4) 03/20/16 08:00 Basophils # (Manual) 0.0 K/mm3 (0.0-0.1) 03/20/16 08:00 Metamyelocytes # 0.0 K/mm3 03/20/16 08:00 Myelocytes # 0.0 K/mm3 03/20/16 08:00 Promyelocytes # 0.0 K/mm3 03/20/16 08:00 Blast Cells # 0.0 K/mm3 03/20/16 08:00 WBC Morphology Not Reportable 03/20/16 08:00 Hypersegmented Neuts Not Reportable 03/20/16 08:00 Hyposegmented Neuts Not Reportable 03/20/16 08:00 Hypogranular Neuts Not Reportable 03/20/16 08:00 Smudge Cells Not Reportable 03/20/16 08:00 Toxic Granulation Not Reportable 03/20/16 08:00 Toxic Vacuolation Not Reportable 03/20/16 08:00 Dohle Bodies Not Reportable 03/20/16 08:00 Pelger-Huet Anomaly Not Reportable 03/20/16 08:00 Germania Rods Not Reportable 03/20/16 08:00 Platelet Estimate Appears normal 03/20/16 08:00 Clumped Platelets Not Reportable 03/20/16 08:00 Plt Clumps, EDTA Not Reportable 03/20/16 08:00 Large Platelets Not Reportable 03/20/16 08:00 Giant Platelets Not Reportable 03/20/16 08:00 Platelet Satelliting Not Reportable 03/20/16 08:00 Plt Morphology Comment Not Reportable 03/20/16 08:00 RBC Morphology Not Reportable 03/20/16 08:00 Dimorphic RBCs Not Reportable 03/20/16 08:00 Polychromasia Not Reportable 03/20/16 08:00 Hypochromasia Not Reportable 03/20/16 08:00 Poikilocytosis Not Reportable 03/20/16 08:00 Anisocytosis Few 03/20/16 08:00 Microcytosis Not Reportable 03/20/16 08:00 Macrocytosis Not Reportable 03/20/16 08:00 Spherocytes Not Reportable 03/20/16 08:00 Pappenheimer Bodies Not Reportable 03/20/16 08:00 Sickle Cells Not Reportable 03/20/16 08:00 Target Cells Not Reportable 03/20/16 08:00 Tear Drop Cells Not Reportable 03/20/16 08:00 Ovalocytes Not Reportable 03/20/16 08:00 Helmet Cells Not Reportable 03/20/16 08:00 [place] Bodies Not Reportable 03/20/16 08:00 [place] Rings Not Reportable 03/20/16 08:00 [place] Cells Not Reportable 03/20/16 08:00 Bite Cells Not Reportable 03/20/16 08:00 Crenated Cell Not Reportable 03/20/16 08:00 Elliptocytes Not Reportable 03/20/16 08:00 Acanthocytes (Spur) Not Reportable 03/20/16 08:00 Rouleaux Not Reportable 03/20/16 08:00 Hemoglobin C Crystals Not Reportable 03/20/16 08:00 Schistocytes Not Reportable 03/20/16 08:00 Malaria parasites Not Reportable 03/20/16 08:00 Christian Bodies Not Reportable 03/20/16 08:00 Hem Pathologist Commnt No 03/20/16 08:00 PT 15.7 Sec. (12.2-14.9) H 03/17/16 17:05 INR 1.26 (0.87-1.13) H 03/17/16 17:05 APTT 34.3 Sec. (24.2-36.6) 03/17/16 17:05 POC ABG pH 7.413 (7.35-7.45) 03/18/16 09:10 POC ABG pCO2 27.9 (35-45) L 03/18/16 09:10 POC ABG pO2 94 (80-105) 03/18/16 09:10 POC ABG HCO3 17.8 03/18/16 09:10 POC ABG Total CO2 19 03/18/16 09:10 POC ABG O2 Sat 98 03/18/16 09:10 POC ABG Base Excess -7 03/18/16 09:10 FiO2 21 % 03/18/16 09:10 Sodium 142 mmol/L (137-145) 03/20/16 08:00 Potassium 4.2 mmol/L (3.6-5.0) D 03/21/16 08:54 Chloride 110.2 mmol/L (98-107) H 03/20/16 08:00 Carbon Dioxide 17 mmol/L (22-30) L 03/21/16 08:54 Anion Gap 16 mmol/L 03/20/16 08:00 BUN 9 mg/dL (7-17) 03/21/16 08:54 Creatinine 0.8 mg/dL (0.7-1.2) 03/21/16 08:54 Estimated GFR > 60 ml/min 03/21/16 08:54 BUN/Creatinine Ratio 11.25 % 03/21/16 08:54 Glucose 181 mg/dL (65-100) H 03/21/16 08:54 POC Glucose 205 (70-105) H 03/22/16 16:56 Hemoglobin A1c 5.8 % (4-6) 03/18/16 14:57 Calcium 7.8 mg/dL (8.4-10.2) L 03/21/16 08:54 Phosphorus 2.1 mg/dL (2.5-4.5) L 03/20/16 08:00 Magnesium 2.1 mg/dL (1.7-2.3) 03/21/16 08:54 Total Bilirubin 0.5 mg/dL (0.1-1.2) 03/19/16 07:45 AST 8 units/L (5-40) 03/19/16 07:45 ALT < 5 units/L (7-56) L 03/19/16 07:45 Alkaline Phosphatase 75 units/L (35-129) 03/19/16 07:45 NT-Pro-B Natriuret Pep 642.1 pg/mL (0-900) 03/18/16 10:22 Total Protein 5.9 g/dL (6.3-8.2) L 03/19/16 07:45 Albumin 2.0 g/dL (3.9-5) L 03/19/16 07:45 Albumin/Globulin Ratio 0.5 % 03/19/16 07:45 Lipase 6 units/L (13-60) L 03/17/16 17:05 Urine Color Yellow (Yellow) 03/18/16 Unknown Urine Turbidity Cloudy (Clear) 03/18/16 Unknown Urine pH 6.0 (5.0-7.0) 03/18/16 Unknown Ur Specific [place] 1.005 (1.003-1.030) 03/18/16 Unknown Urine Protein 30 mg/dl mg/dL (Negative) 03/18/16 Unknown Urine Glucose (UA) Negative mg/dL (Negative) 03/18/16 Unknown Urine Ketones Negative mg/dL (Negative) 03/18/16 Unknown Urine Blood Moderate (Negative) 03/18/16 Unknown Urine Nitrite Positive (Negative) 03/18/16 Unknown Urine Bilirubin Negative (Negative) 03/18/16 Unknown Urine Urobilinogen < 2.0 mg/dL (<2.0) 03/18/16 Unknown Ur Leukocyte Esterase Negative (Negative) 03/18/16 Unknown Urine WBC (Auto) 7.0 /HPF (0.0-6.0) H 03/18/16 Unknown Urine RBC (Auto) 2.0 /HPF (0.0-6.0) 03/18/16 Unknown U Epithel Cells (Auto) 7.0 /HPF (0-13.0) 03/18/16 Unknown Urine Bacteria (Auto) 4+ /HPF (Negative) 03/18/16 Unknown Ketones 3.8 mg/dL (0.2-2.8) H 03/18/16 10:22 Blood Type A POSITIVE 03/17/16 17:05 Antibody Screen Negative 03/17/16 17:05
[2016-03-22] MEDS: ZOCOR PO SCH (22:38)
[2016-03-22] MEDS: REMERON PO SCH (22:38)
[2016-03-23] MEDS: VANCOMYCIN PO SCH ×3 (00:25→12:55)
[2016-03-23] MEDS: MERREM 1,000 MG in NACL 0.9% 100 ML IV SCH ×2 (05:55→13:02)
[2016-03-23] MEDS: LOVENOX SUB-Q SCH (09:08)
[2016-03-23] MEDS: NOVOLOG SUB-Q SCH ×2 (09:09→12:48)
[2016-03-23] MEDS: MEGACE PO SCH (09:09)
[2016-03-23] MEDS: MAXZIDE-25 PO SCH (09:09)
[2016-03-23] MEDS: COREG PO SCH (09:10)
--- NOTE | 2016-03-23 09:10 | Hem/Onc Progress Note ---
Assessment and Plan There was not enough fluid to drain. At this time patient has evidence of metastatic disease which is progressive. I have discussed hospice and it seems the hospitalist has 2. Patient seems to be agreeable. I have discussed this with the patient's daughter who lives in [place] 2. Thank you Subjective Date of service: 03/23/16 Interval history: Patient feels fair. events noted. Objective - Exam Narrative Exam: Very weak - Constitutional Vitals: Last Vital Signs Temp 97.7 F 03/23/16 07:46 Pulse 76 03/23/16 08:02 Resp 14 03/23/16 08:02 BP 153/83 03/23/16 07:46 Pulse Ox 97 03/23/16 07:46 General appearance: cachectic Performance status: 3-limited selfcare - Neck Neck: supple - Respiratory Respiratory: bilateral: diminished - Cardiovascular Rhythm: regular - Gastrointestinal General gastrointestinal: Present: soft - Labs Lab Results: Laboratory Results - last 24 hr 03/22/16 03/22/16 03/22/16 12:04 16:56 21:20 POC Glucose 169 H 205 H 170 H 03/23/16 06:45 POC Glucose 173 H
[2016-03-23 09:44] LABS: Hematocrit 30.2 % (30.3-42.9); Hemoglobin 9.7 gm/dl (10.1-14.3); Mean Corpuscular HGB Conc 32 % (30-34); Mean Corpuscular Hemoglobin 27 pg (28-32); Mean Corpuscular Volume 83 fl (79-97); Platelet Count 219 K/mm3 (140-440); Red Blood Count 3.65 M/mm3 (3.65-5.03); Red Cell Distribution Width 16.8 % (13.2-15.2)
[2016-03-23 09:54] LABS: Anion Gap 15 mmol/L; Blood Urea Nitrogen 7 mg/dL (7-17); Carbon Dioxide 18 mmol/L (22-30); Chloride 106.8 mmol/L (98-107); Glucose 167 mg/dL (65-100); Potassium 3.8 mmol/L (3.6-5.0); Sodium 136 mmol/L (137-145)
[2016-03-23 10:22] LABS: White Blood Count 22.1 K/mm3 (4.5-11.0)
--- NOTE | 2016-03-23 10:31 | Progress Note ---
Hospitalist Physical - Constitutional Vitals: Temp Pulse Resp BP Pulse Ox 97.7 F 76 14 153/83 97 03/23/16 07:46 03/23/16 08:02 03/23/16 08:02 03/23/16 09:10 03/23/16 07:46 General appearance: Present: no acute distress, cachectic, disheveled Results - Labs CBC & Chem 7: 03/23/16 Unknown 03/23/16 Unknown Labs: Laboratory Last Values WBC 22.1 K/mm3 (4.5-11.0) H 03/23/16 Unknown RBC 3.65 M/mm3 (3.65-5.03) 03/23/16 Unknown Hgb 9.7 gm/dl (10.1-14.3) L 03/23/16 Unknown Hct 30.2 % (30.3-42.9) L 03/23/16 Unknown MCV 83 fl (79-97) 03/23/16 Unknown MCH 27 pg (28-32) L 03/23/16 Unknown MCHC 32 % (30-34) 03/23/16 Unknown RDW 16.8 % (13.2-15.2) H 03/23/16 Unknown Plt Count 219 K/mm3 (140-440) 03/23/16 Unknown Lymph % (Auto) 22.1 % (13.4-35.0) 03/17/16 17:05 [place] % (Auto) 8.8 % (0.0-7.3) H 03/17/16 17:05 Eos % (Auto) 0.3 % (0.0-4.3) 03/17/16 17:05 Baso % (Auto) 0.2 % (0.0-1.8) 03/17/16 17:05 Lymph # 3.2 K/mm3 (1.2-5.4) 03/17/16 17:05 [place] # 1.3 K/mm3 (0.0-0.8) H 03/17/16 17:05 Eos # 0.0 K/mm3 (0.0-0.4) 03/17/16 17:05 Baso # 0.0 K/mm3 (0.0-0.1) 03/17/16 17:05 Add Manual Diff Complete 03/20/16 08:00 Total Counted 100 03/20/16 08:00 Seg Neutrophils % 68.6 % (40.0-70.0) 03/17/16 17:05 Seg Neuts % (Manual) 86.0 % (40.0-70.0) H 03/20/16 08:00 Band Neutrophils % 0 % 03/20/16 08:00 Lymphocytes % (Manual) 9.0 % (13.4-35.0) L 03/20/16 08:00 Reactive Lymphs % (Man) 0 % 03/20/16 08:00 Monocytes % (Manual) 5.0 % (0.0-7.3) 03/20/16 08:00 Eosinophils % (Manual) 0 % (0.0-4.3) 03/20/16 08:00 Basophils % (Manual) 0 % (0.0-1.8) 03/20/16 08:00 Metamyelocytes % 0 % 03/20/16 08:00 Myelocytes % 0 % 03/20/16 08:00 Promyelocytes % 0 % 03/20/16 08:00 Blast Cells % 0 % 03/20/16 08:00 Nucleated RBC % Not Reportable 03/20/16 08:00 Seg Neutrophils # 9.9 K/mm3 (1.8-7.7) H 03/17/16 17:05 Seg Neutrophils # Man 17.5 K/mm3 (1.8-7.7) H 03/20/16 08:00 Band Neutrophils # 0.0 K/mm3 03/20/16 08:00 Lymphocytes # (Manual) 1.8 K/mm3 (1.2-5.4) 03/20/16 08:00 Abs React Lymphs (Man) 0.0 K/mm3 03/20/16 08:00 Monocytes # (Manual) 1.0 K/mm3 (0.0-0.8) H 03/20/16 08:00 Eosinophils # (Manual) 0.0 K/mm3 (0.0-0.4) 03/20/16 08:00 Basophils # (Manual) 0.0 K/mm3 (0.0-0.1) 03/20/16 08:00 Metamyelocytes # 0.0 K/mm3 03/20/16 08:00 Myelocytes # 0.0 K/mm3 03/20/16 08:00 Promyelocytes # 0.0 K/mm3 03/20/16 08:00 Blast Cells # 0.0 K/mm3 03/20/16 08:00 WBC Morphology Not Reportable 03/20/16 08:00 Hypersegmented Neuts Not Reportable 03/20/16 08:00 Hyposegmented Neuts Not Reportable 03/20/16 08:00 Hypogranular Neuts Not Reportable 03/20/16 08:00 Smudge Cells Not Reportable 03/20/16 08:00 Toxic Granulation Not Reportable 03/20/16 08:00 Toxic Vacuolation Not Reportable 03/20/16 08:00 Dohle Bodies Not Reportable 03/20/16 08:00 Pelger-Huet Anomaly Not Reportable 03/20/16 08:00 Germania Rods Not Reportable 03/20/16 08:00 Platelet Estimate Appears normal 03/20/16 08:00 Clumped Platelets Not Reportable 03/20/16 08:00 Plt Clumps, EDTA Not Reportable 03/20/16 08:00 Large Platelets Not Reportable 03/20/16 08:00 Giant Platelets Not Reportable 03/20/16 08:00 Platelet Satelliting Not Reportable 03/20/16 08:00 Plt Morphology Comment Not Reportable 03/20/16 08:00 RBC Morphology Not Reportable 03/20/16 08:00 Dimorphic RBCs Not Reportable 03/20/16 08:00 Polychromasia Not Reportable 03/20/16 08:00 Hypochromasia Not Reportable 03/20/16 08:00 Poikilocytosis Not Reportable 03/20/16 08:00 Anisocytosis Few 03/20/16 08:00 Microcytosis Not Reportable 03/20/16 08:00 Macrocytosis Not Reportable 03/20/16 08:00 Spherocytes Not Reportable 03/20/16 08:00 Pappenheimer Bodies Not Reportable 03/20/16 08:00 Sickle Cells Not Reportable 03/20/16 08:00 Target Cells Not Reportable 03/20/16 08:00 Tear Drop Cells Not Reportable 03/20/16 08:00 Ovalocytes Not Reportable 03/20/16 08:00 Helmet Cells Not Reportable 03/20/16 08:00 [place] Bodies Not Reportable 03/20/16 08:00 [place] Rings Not Reportable 03/20/16 08:00 [place] Cells Not Reportable 03/20/16 08:00 Bite Cells Not Reportable 03/20/16 08:00 Crenated Cell Not Reportable 03/20/16 08:00 Elliptocytes Not Reportable 03/20/16 08:00 Acanthocytes (Spur) Not Reportable 03/20/16 08:00 Rouleaux Not Reportable 03/20/16 08:00 Hemoglobin C Crystals Not Reportable 03/20/16 08:00 Schistocytes Not Reportable 03/20/16 08:00 Malaria parasites Not Reportable 03/20/16 08:00 Christian Bodies Not Reportable 03/20/16 08:00 Hem Pathologist Commnt No 03/20/16 08:00 PT 15.7 Sec. (12.2-14.9) H 03/17/16 17:05 INR 1.26 (0.87-1.13) H 03/17/16 17:05 APTT 34.3 Sec. (24.2-36.6) 03/17/16 17:05 POC ABG pH 7.413 (7.35-7.45) 03/18/16 09:10 POC ABG pCO2 27.9 (35-45) L 03/18/16 09:10 POC ABG pO2 94 (80-105) 03/18/16 09:10 POC ABG HCO3 17.8 03/18/16 09:10 POC ABG Total CO2 19 03/18/16 09:10 POC ABG O2 Sat 98 03/18/16 09:10 POC ABG Base Excess -7 03/18/16 09:10 FiO2 21 % 03/18/16 09:10 Sodium 136 mmol/L (137-145) L 03/23/16 Unknown Potassium 3.8 mmol/L (3.6-5.0) 03/23/16 Unknown Chloride 106.8 mmol/L (98-107) 03/23/16 Unknown Carbon Dioxide 18 mmol/L (22-30) L 03/23/16 Unknown Anion Gap 15 mmol/L 03/23/16 Unknown BUN 7 mg/dL (7-17) 03/23/16 Unknown Creatinine 0.7 mg/dL (0.7-1.2) 03/23/16 Unknown Estimated GFR > 60 ml/min 03/23/16 Unknown BUN/Creatinine Ratio 10.00 % 03/23/16 Unknown Glucose 167 mg/dL (65-100) H 03/23/16 Unknown POC Glucose 173 (70-105) H 03/23/16 06:45 Hemoglobin A1c 5.8 % (4-6) 03/18/16 14:57 Calcium 8.0 mg/dL (8.4-10.2) L 03/23/16 Unknown Phosphorus 2.1 mg/dL (2.5-4.5) L 03/20/16 08:00 Magnesium 2.1 mg/dL (1.7-2.3) 03/21/16 08:54 Total Bilirubin 0.5 mg/dL (0.1-1.2) 03/19/16 07:45 AST 8 units/L (5-40) 03/19/16 07:45 ALT < 5 units/L (7-56) L 03/19/16 07:45 Alkaline Phosphatase 75 units/L (35-129) 03/19/16 07:45 NT-Pro-B Natriuret Pep 642.1 pg/mL (0-900) 03/18/16 10:22 Total Protein 5.9 g/dL (6.3-8.2) L 03/19/16 07:45 Albumin 2.0 g/dL (3.9-5) L 03/19/16 07:45 Albumin/Globulin Ratio 0.5 % 03/19/16 07:45 Lipase 6 units/L (13-60) L 03/17/16 17:05 Urine Color Yellow (Yellow) 03/18/16 Unknown Urine Turbidity Cloudy (Clear) 03/18/16 Unknown Urine pH 6.0 (5.0-7.0) 03/18/16 Unknown Ur Specific [place] 1.005 (1.003-1.030) 03/18/16 Unknown Urine Protein 30 mg/dl mg/dL (Negative) 03/18/16 Unknown Urine Glucose (UA) Negative mg/dL (Negative) 03/18/16 Unknown Urine Ketones Negative mg/dL (Negative) 03/18/16 Unknown Urine Blood Moderate (Negative) 03/18/16 Unknown Urine Nitrite Positive (Negative) 03/18/16 Unknown Urine Bilirubin Negative (Negative) 03/18/16 Unknown Urine Urobilinogen < 2.0 mg/dL (<2.0) 03/18/16 Unknown Ur Leukocyte Esterase Negative (Negative) 03/18/16 Unknown Urine WBC (Auto) 7.0 /HPF (0.0-6.0) H 03/18/16 Unknown Urine RBC (Auto) 2.0 /HPF (0.0-6.0) 03/18/16 Unknown U Epithel Cells (Auto) 7.0 /HPF (0-13.0) 03/18/16 Unknown Urine Bacteria (Auto) 4+ /HPF (Negative) 03/18/16 Unknown Ketones 3.8 mg/dL (0.2-2.8) H 03/18/16 10:22 Blood Type A POSITIVE 03/17/16 17:05 Antibody Screen Negative 03/17/16 17:05
[2016-03-23 11:38] LABS: Basophils % (Manual) 0 % (0.0-1.8); Blastocytes % (Manual) 0 %; Eosinophils % (Manual) 0 % (0.0-4.3)
[2016-03-23 11:40] LABS: Anisocytosis Few; Diff Status Complete
--- NOTE | 2016-03-23 11:57 | Progress Note ---
Assessment and Plan Antibiotics: 1) zosyn 4.5 gm iv Q8H (03/20 2) Metronidazole 500mg iv Q8H (03/18 This is a 70 year old woman with metastatic lung cancer, diabetes mellitus and hypertension. Patient had a complicated course after chemotherapy with the development of pelvic abscess leading to hysterectomy on 01/17/16 and Cdiff colitis. She completed treatment for the abscess with zosyn followed by meropenem in January. Patient presented on 03/17/16 with weakness and diarrhea found to have a mid pelvis cavity containing air and a small amount of fluid suspicious of an abscess in addition CT scan revealed that the right lower lobe lung cancer is now cavitating with the presence of fluid. The concern is now raised for possible lung abscess. 1) Pelvic abscess in a patient who underwent hysterectomy on 03/18/15 for pelvic abscess. Now with a new large cavity with air and fluid in the mid pelvis area. Intra-operative culture done on 01/17/16 revealed E.faecalis, E.coli and Enterobacter cloacae. The Enterobacter was intermediate to zosyn. -CT scan done on 03/22/16 did not reveal a large collection to be drained. 2) Cavitating right lower lung cancer with the presence of air and small amount of fluid. The concern is raised for a lung abscess. It is also possible that this is all malignancy and not an infectious process. The decision on treating empirically would be based on the plan of care for patient. Patient has decided on hospice but the question is, are we withdrawing all aggressive measures? -spoke with patient and she said that she does not want to go through weeks of iv antibiotics. In view of this, will give patient oral avelox for 3 weeks for suspected lung abscess 3) leukocytosis in a patient with metastatic lung cancer to liver and recent treatment for cdiff. The elevated wbc could be related to the malignancy vs cdiff vs pelvic abscess. 4. left internal carotid artery stenosis Plan: 1) continue meropenem while in hospital 2) vancomycin 125 mg po Q6H for presumptive cdiff 3) would give avelox 400mg po Qdaily x 21 days on discharge 4) would give flagyl 500mg po Q8H with avelox x 21 days Subjective Date of service: 03/23/16 Principal diagnosis: lung abscess Interval history: Patient has agreed and accepted in hospice care. She informed me that she understands the function of hospice care.. She is not having shortness of breath Objective - Constitutional Vitals: Selected Entries 03/23/16 03/23/16 03/23/16 07:46 08:02 09:10 Temperature 97.7 F Pulse Rate [ 76 Left Radial] Respiratory 14 Rate Blood Pressure 153/83 Blood Pressure 106 Mean General appearance: Present: no acute distress, well-nourished - EENT Eyes: PERRL, EOM intact, no scleral icterus, no conjunctival injection ENT: hearing intact, clear oral mucosa, poor dentition Ears: bilateral: normal - Neck Neck: supple, no enlarged thyroid, no masses or JVD - Respiratory Respiratory effort: normal Respiratory: bilateral: rales - Breasts Breasts: deferred - Cardiovascular Rhythm: regular Heart Sounds: Present: S1 & S2 Extremities: no ischemia, No edema - Gastrointestinal General gastrointestinal: Present: soft, non-tender, normal bowel sounds Rectal Exam: deferred - Genitourinary Female genitourinary: deferred - Integumentary Integumentary: clear, warm, dry, no jaundice, no rash - Musculoskeletal Musculoskeletal: strength equal bilaterally - Neurologic Neurologic: moves all extremities - Labs CBC & Chem 7: 03/23/16 Unknown 03/23/16 Unknown Labs: Microbiology 03/21/16 13:45 Urine,Clean Catch Urine Culture - Final NO GROWTH AFTER 48 HOURS Laboratory Tests 03/18/16 03/23/16 03/23/16 Unknown Unknown Unknown WBC 22.1 H Plt Count 219 Creatinine 0.7 Estimated GFR > 60 Urine WBC (Auto) 7.0 H
--- NOTE | 2016-03-23 12:07 | Discharge Summary ---
Providers - Providers Date of Admission: 03/18/16 13:13 Date of discharge: 03/23/16 Attending physician: JUNI KAMARA 03/19/16 01:10 Consult to Physician [CONS] Routine Consulting Provider: REJI HALL Reason For Exam: Lung Ca Place consult to:: Notified:: ANSWERING SERVICES Phone number called:: [phone] Was contact made?: Yes If yes, spoke with:: PARAG Welsh called:: 08:22 Comment:: LETITIA NOTIFIED 03/20/16 08:07 Consult to Physician [CONS] Routine Consulting Provider: KURT NELSON Reason For Exam: lung abscess/sepsis/h/o metastatic Rt lung ca Place consult to:: DR. NELSON Notified:: ANSWERING SERVICES Phone number called:: [phone] Was contact made?: Yes If yes, spoke with:: MICHAEL Welsh called:: 09:32 Comment:: RADHIKA SPOKE WITH DR. ENLSON 03/20/16 17:27 Consult to Physician [CONS] Routine Consulting Provider: CURTIS OGLESBY Reason For Exam: pelvic abscess Place consult to:: RADHA AVILA Notified:: ANSWERING SERVICES Phone number called:: [phone] Was contact made?: Yes If yes, spoke with:: VALENTÍN Welsh called:: 18:30 Comment:: RADHIKA NOTIFIED 03/20/16 17:28 Consult to Physician [CONS] Routine Consulting Provider: MARLO LUNA Reason For Exam: pelvic abscess Place consult to:: DR. LUNA Notified:: DR. LUNA Phone number called:: [phone] Was contact made?: Yes If yes, spoke with:: Time called:: 18:29 Comment:: RADHIKA SPOKE WITH DR. LUNA 03/20/16 18:49 Consult to Interventional Radiology [CONS] Routine Consulting Provider: SCOTT PEREZ Reason For Exam: CT guided drainage of pelvic abscess Place consult to:: Dr Perez Notified:: yes Was contact made?: Yes If yes, spoke with:: Dr Raya Welsh called:: 20:00 03/21/16 11:14 Consult to Physician [CONS] Routine Consulting Provider: LENO WILD Reason For Exam: pelvic abscess adjacent to vag cuff Place consult to:: dr. wild Notified:: answering service Phone number called:: [phone] Was contact made?: Yes If yes, spoke with:: eleanor Time called:: 11:35 03/21/16 12:56 Consult to Physician [CONS] Routine Consulting Provider: MARK CARNEY Reason For Exam: pelvic abscess Place consult to:: dr. carney Notified:: answering service Phone number called:: [phone] Was contact made?: Yes If yes, spoke with:: tiffany Time called:: 13:59 03/21/16 16:19 Consult to Wound/ET Nurse [CONS] Routine Reason For Exam: wound eval 03/23/16 09:11 Consult to Case Management [CONS] Routine Services Needed at Discharge: Other Notified:: anderson notified Additional Physician Instructions: hospice eval Primary care physician: ALLISON FLORES Hospitalization Condition: Fair Hospital course: Patient is 70 yo with lung cancer, presented with nausea, viomiting, diarrhea. CT Abd was suspicious for pelvic abscess. He was admitted, started on iv fluids , iv antibiotics. Stool was positive for c. diff so was on Flagyl. Ct Abdomen also showed liver metastases. Surgeon and Obncologist were consulted. CT guided aspiration was attempted but no collection was seen. Oncology recommended hospice care. The patient was in agreement so was transferred to inpatient hospice on 03/23/16. She was discharged on Avelox and Flagyl to complete treatment for Pelvic abscess and c. diff colitis. Total time spent on discharge, 33 mins. Disposition: [facility] (MEDICAL FACILITY) - Discharge Diagnoses (1) Lung abscess Status: Acute (2) Lung cancer Status: Chronic Qualifiers: Laterality: right Lung location: lower lobe of lung Qualified Code(s): C34.31 - Malignant neoplasm of lower lobe, right bronchus or lung (3) C. difficile colitis Status: Acute (4) Diarrhea Status: Acute Qualifiers: Diarrhea type: unspecified type Qualified Code(s): R19.7 - Diarrhea, unspecified (5) Diabetes mellitus type 2 in nonobese Status: Chronic (6) Pelvic abscess in female Status: Acute Core Measure Documentation - Palliative Care Palliative Care/ Comfort Measures: Not Applicable - Core Measures Any of the following diagnoses?: none Exam - Constitutional Vitals: Temp Pulse Resp BP Pulse Ox 97.7 F 76 14 153/83 97 03/23/16 07:46 03/23/16 08:02 03/23/16 08:02 03/23/16 09:10 03/23/16 07:46 General appearance: Present: no acute distress - Respiratory Respiratory: bilateral: CTA - Cardiovascular Rhythm: regular Heart Sounds: Present: S1 & S2 - Neurologic Neurologic: other (awake,alert) Plan Activity: no restrictions Diet: diabetic Additional Instructions: 1.Discharge to inpatient hospice. Follow up with: ALLISON FLORES MD [Primary Care Provider] - 3-5 Days Prescriptions: Moxifloxacin HCl [Avelox] 400 mg PO QDAY 21 Days Oxycodone HCl/Acetaminophen [Percocet 7.5/325 mg] 1 each PO Q6HR PRN #15 tablet PRN Reason: Pain metroNIDAZOLE [Flagyl] 500 mg PO Q8HR 21 Days
[2016-03-23] MEDS: D5NS 1,000 ML IV SCH (12:55)
--- NOTE | 2016-03-23 13:41 | Progress Note ---
Assessment and Plan Pt resting comfortably. no compl. yarelis diet surgically stable about to be transferred to hospice. will follow prn Objective Vital Signs - 12hr 03/23/16 03/23/16 03/23/16 04:00 07:46 08:02 Temperature 98.6 F 97.7 F Pulse Rate [ 76 Left Radial] Pulse Rate [ 92 H 89 Right Radial] Respiratory 20 14 14 Rate Blood Pressure Blood Pressure 156/79 153/83 [Right Arm] O2 Sat by Pulse 97 Oximetry 03/23/16 09:10 Temperature Pulse Rate [ Left Radial] Pulse Rate [ Right Radial] Respiratory Rate Blood Pressure 153/83 Blood Pressure [Right Arm] O2 Sat by Pulse Oximetry - Labs 03/23/16 Unknown 03/23/16 Unknown Diabetes panel 03/23/16 Range/Units Unknown Sodium 136 L (137-145) mmol/L Potassium 3.8 (3.6-5.0) mmol/L Chloride 106.8 (98-107) mmol/L Carbon Dioxide 18 L (22-30) mmol/L BUN 7 (7-17) mg/dL Creatinine 0.7 (0.7-1.2) mg/dL Glucose 167 H (65-100) mg/dL Calcium 8.0 L (8.4-10.2) mg/dL Calcium panel 03/23/16 Range/Units Unknown Calcium 8.0 L (8.4-10.2) mg/dL Pituitary panel 03/23/16 Range/Units Unknown Sodium 136 L (137-145) mmol/L Potassium 3.8 (3.6-5.0) mmol/L Chloride 106.8 (98-107) mmol/L Carbon Dioxide 18 L (22-30) mmol/L BUN 7 (7-17) mg/dL Creatinine 0.7 (0.7-1.2) mg/dL Glucose 167 H (65-100) mg/dL Calcium 8.0 L (8.4-10.2) mg/dL Adrenal panel 03/23/16 Range/Units Unknown Sodium 136 L (137-145) mmol/L Potassium 3.8 (3.6-5.0) mmol/L Chloride 106.8 (98-107) mmol/L Carbon Dioxide 18 L (22-30) mmol/L BUN 7 (7-17) mg/dL Creatinine 0.7 (0.7-1.2) mg/dL Glucose 167 H (65-100) mg/dL Calcium 8.0 L (8.4-10.2) mg/dL
[2016-03-23 15:01] VITALS: BP 155/81
[2016-03-23] MEDS ORDERED: FLUSH HEPARIN IV SCH (16:15)
[2016-03-23] MEDS ORDERED: TRIPLE ANTIBIOTIC TP ONE (16:15)
--- NOTE | 2016-03-26 10:18 | Query- Nutrition ---
Dear Date:03/26/16 Email Producer/CDS:Johan Anders Phone#: Exercise your independent professional judgment when responding to query. Questions asked do not imply a particular answer is desired or expected. We greatly appreciate your clarification on this issue. Clinical Documentation States: 70 y/o f admitted 03/18/16 with lung abscess. Patient described as," cachectic, loss of appetite". Per 's progress note on 03/19, 03/20. Clinical Findings Show: BMI:20.1 Sr.Albumin:2.2-2.0 lymph %: __10.0 Total protein:6.5-5.9 Calcium:8.7-8.4 Please select the most appropriate option 3 [] Mild Malnutrition [] Mild - Moderate Malnutrition [] Moderate - Severe Malnutrition []x Severe Malnutrition Serum Albumin 2.8 to 3.4 g/dl or Pre-albumin 5 to 17 mg/dl1,2 Inadequate nutritional intake1,2,3,4 NPO > 5 days Weight loss: 5% in 1 month or 7.5% in 3 months or 10% in 6 months1, 3,4 BMI 16 to 18.4 or Weight <90% of ideal body weight1,2,3,4 Serum Albumin < 2.8 g/ dl1,2 Lymphocytes < 1500/ L2 Inadequate nutritional intake3, high stress e.g. major trauma, sepsis,pancreatitis, kelley etc. Decubitus ulcers1,2, , skin breakdown2, easy hair pluckability2 Weight <80% standard for height2 Triceps skin fold <3 mm2 Mid-arm muscle circumference <15 cm2 Creatinine-height index <60% standard2 [ ] Cachexia [ ] Emaciated w/Malnutrition [ ] Other: [ ] Unable to determine [ ] Comment/Explanation: Present on Admission: [ x] Yes (Y) [ ] Clinically undeterminable (W) [ ] No (N) Please also document response in your Progress Notes and/or Discharge Summary and indicate if the condition was present on admission. MTDD
== END 2016-03-23 17:00 | disposition hospice, inpatient (51) | DRG 177 ==
LOC: ED 15:28 → 3A 03-18 13:13
PROVIDERS: ADMIT Internal Medicine; ATTEND Internal Medicine
PROC: 02HV33Z Insertion of Infusion Device into Superior Vena Cava, Percutaneous Approach (ICD-10-PCS; principal; 2016-03-18)
PROC: 4A033R1 Measurement of Arterial Saturation, Peripheral, Percutaneous Approach (ICD-10-PCS; 2016-03-18)
DX: J85.2 Abscess of lung without pneumonia (principal); E43 Unspecified severe protein-calorie malnutrition; A04.7 Enterocolitis due to Clostridium difficile; C34.31 Malignant neoplasm of lower lobe, right bronchus or lung; N39.0 Urinary tract infection, site not specified; E87.6 Hypokalemia; J98.4 Other disorders of lung; R10.84 Generalized abdominal pain; E86.0 Dehydration; N73.9 Female pelvic inflammatory disease, unspecified; E78.5 Hyperlipidemia, unspecified; M13.862 Other specified arthritis, left knee; M13.861 Other specified arthritis, right knee; E11.65 Type 2 diabetes mellitus with hyperglycemia; E83.42 Hypomagnesemia; E83.39 Other disorders of phosphorus metabolism; J44.9 Chronic obstructive pulmonary disease, unspecified; I25.10 Atherosclerotic heart disease of native coronary artery without angina pectoris; F17.200 Nicotine dependence, unspecified, uncomplicated; D72.829 Elevated white blood cell count, unspecified; I65.22 Occlusion and stenosis of left carotid artery; Z90.49 Acquired absence of other specified parts of digestive tract; Z90.710 Acquired absence of both cervix and uterus; Z79.899 Other long term (current) drug therapy; Z92.21 Personal history of antineoplastic chemotherapy
CPT/HCPCS: 36415; 70544; 71020; 71260; 74176; 74177; 80048; 80053; 81001; 82010; 82803; 82962; 83036; 83690; 83735; 83880; 84100; 85007; 85025; 85610; 85730; 86850; 86900; 86901; 87086; 87493; 96361; 96374; 96375; A6250; J1170; J1642; J1650; J1815; J2185; J2250; J2405; J2543; J3010; J3370; J3475; J3480; J7030; J7040; J7042; Q9967